=== PATIENT | female | born 1985 | race Caucasian/White ===

== ENCOUNTER → 2023-03-29 15:41 | Outpatient (BNVA) | payer OTHER, SELFPAY | PROVIDERS: Visit Provider Surgery | DX: K43.9 Ventral hernia without obstruction or gangrene (principal) | CPT/HCPCS: 99202 ==

== ENCOUNTER 2023-04-11 13:48 | Outpatient (REF) | payer OTHER, SELFPAY ==
--- NOTE | ~2023-04-11 | CT_ITS ---
EXAMINATION: CT ABDOMEN AND PELVIS WITHOUT CONTRAST CLINICAL INFORMATION: Ventral hernia COMPARISON: None available. TECHNIQUE: Multidetector volumetric imaging was performed from the superior aspect of the liver through the pubic symphysis. Sagittal and coronal reformatted images were obtained on the technologist's workstation. This CT examination was performed using dose optimization techniques as appropriate, variously including the following: *Automated exposure control *Adjustment of mA and/or kV according to patient size (this includes techniques or standardized protocols for targeted exams where dose is matched to indication/reason for exam; i.e. extremities or head) *Use of iterative reconstruction technique DLP: 7 1 mGy-cm FINDINGS: LUNG BASES: The visualized lung bases are unremarkable. LIVER, GALLBLADDER, AND BILIARY TREE: The liver is normal in size, shape, and attenuation. No focal hepatic lesion or biliary ductal dilatation is present. The gallbladder is unremarkable with no evidence of radiopaque gallstones, gallbladder wall thickening, or obvious pericholecystic inflammatory changes. PANCREAS: Unremarkable. SPLEEN: Unremarkable. ADRENAL GLANDS: Unremarkable. KIDNEYS AND URETERS: The kidneys are normal in size, shape, and attenuation. No hydronephrosis, hydroureter, or calculi seen. No perinephric stranding. BLADDER: Not optimally distended but appears unremarkable. GASTROINTESTINAL TRACT: The small and large bowel are unremarkable. The appendix is unremarkable. ABDOMINAL WALL: Diastasis of the rectus muscles. Left supraumbilical hernia containing fat and small amount of fluid. Small umbilical hernia containing fat. Probable low midline scar. LYMPH NODES: Normal. VASCULAR: Unremarkable. PELVIC VISCERA: Unremarkable. OSSEOUS STRUCTURES: Curvature of the lower lumbar spine to the left. CT/CT abdomen pelvis wo IV con IMPRESSION: Umbilical and periumbilical hernias containing fat and small amount of fluid. Diastasis of the rectus muscles. Fleischner guidelines were followed.
== END 2023-04-11 13:49 | disposition home or self-care (01) ==
LOC: HO.CT 13:48
PROVIDERS: Visit Provider Surgery
DX: K43.9 Ventral hernia without obstruction or gangrene (principal)
CPT/HCPCS: 74176

== ENCOUNTER 2023-04-13 08:55 | Day surgery (SDC) | payer OTHER, SELFPAY ==
[2023-04-11 11:48] VITALS: BMI 43.4
--- NOTE | 2023-04-12 13:20 | P.CONAN_ITS ---
Documented by User: Laureen Johnston NP 04/12/23 13:27 HPI - Anesthesia Eval Consult details Narrative: 37yo F for supraumbilical hernia, poss mesh Suboxone daily - Took 16mg 04/12/23. Will hold until DOS. PMFSH Active Problems Active Problems: All Active Problems (Updated 04/11/23 @ 11:39 by Safia Turner, RN) Buprenorphine dependence (Acute) Morbid exogenous obesity (Acute) Supraumbilical hernia (Acute) Past Medical History Medical History (Updated 04/11/23 @ 11:39 by Safia Turner, RN) Buprenorphine dependence History of opioid abuse Hx MRSA infection Hx of bronchitis Morbid exogenous obesity Seasonal depression Supraumbilical hernia Family History Family History (Updated 03/29/23 @ 15:59 by TAJ Koo) Maternal Aunt Cervical cancer Surgical History Surgical History (Updated 04/11/23 @ 11:39 by Safia Turner RN) History of 3 sections History of incisional hernia repair History of tonsillectomy History of tubal ligation Social History Social History (Updated 03/29/23 @ 15:59 by TAJ Koo) Alcohol intake: never Patient Tobacco Use Status: Current everyday Tobacco user Tobacco use type: Cigarette Cigarette Packs Per Day: 0.5 Cigarettes Per Day: 10.0 Use of substances other than those prescribed or required for medical reasons: No Are you DNR?: No Advance Directives: No Advance Directives Information Provided: Yes Meds Allergies Allergy/AdvReac Type Severity Reaction Status Date / Time naloxone [NALOXONE] Allergy Severe Anaphylaxis Verified 04/13/23 09:13 nyloxone Allergy Unknown throat Verified 04/13/23 09:13 paralysis, anaphylaxis shellfish derived AdvReac Intermediate Vomiting Verified 03/29/23 15:57 ([place] legs) Home Medications Medication Instructions Recorded Confirmed Last Taken Type buprenorphine HCl 8 mg sublingual 24 mg sublingual TID 03/29/23 04/13/23 04/12/23 History tablet dextroamphetamine-amphetamine ER 2 cap PO DAILY 03/29/23 04/11/23 04/13/23 History 20 mg 24hr capsule,extend release (Adderall XR) lamotrigine 200 mg tablet 200 mg PO DAILY 03/29/23 04/11/23 04/13/23 History albuterol sulfate 90 mcg/actuation 2 puff inhalation Q4H PRN dyspnea 04/11/23 04/11/23 Unknown History aerosol inhaler (Ventolin HFA) Exam Exam Date and Time: April 12, 2023 1320 Height,Weight and Vital Signs: Height 5 ft 3 in Weight 111.13 kg Documented by User: Nicole Piper MD 04/13/23 09:33 [facility] Past Medical History Medical History (Updated 04/11/23 @ 11:39 by Safia Turner, RN) Buprenorphine dependence History of opioid abuse Hx MRSA infection Hx of bronchitis Morbid exogenous obesity Seasonal depression Supraumbilical hernia Family History Family History (Updated 03/29/23 @ 15:59 by TAJ Koo) Maternal Aunt Cervical cancer Family history of problems with anesthesia: No Surgical History Surgical History (Updated 04/11/23 @ 11:39 by Safia Turner RN) History of 3 sections History of incisional hernia repair History of tonsillectomy History of tubal ligation History of Problems with Anesthesia: No Social History Social History (Updated 03/29/23 @ 15:59 by TAJ Koo) Alcohol intake: never Patient Tobacco Use Status: Current everyday Tobacco user Tobacco use type: Cigarette Cigarette Packs Per Day: 0.5 Cigarettes Per Day: 10.0 Use of substances other than those prescribed or required for medical reasons: No Are you DNR?: No Advance Directives: No Advance Directives Information Provided: Yes Meds Allergies Allergy/AdvReac Type Severity Reaction Status Date / Time naloxone [NALOXONE] Allergy Severe Anaphylaxis Verified 04/13/23 09:13 nyloxone Allergy Unknown throat Verified 04/13/23 09:13 paralysis, anaphylaxis shellfish derived AdvReac Intermediate Vomiting Verified 03/29/23 15:57 ([place] legs) Home Medications Medication Instructions Recorded Confirmed Last Taken Type buprenorphine HCl 8 mg sublingual 24 mg sublingual TID 03/29/23 04/13/23 04/12/23 History tablet dextroamphetamine-amphetamine ER 2 cap PO DAILY 03/29/23 04/11/23 04/13/23 History 20 mg 24hr capsule,extend release (Adderall XR) lamotrigine 200 mg tablet 200 mg PO DAILY 03/29/23 04/11/23 04/13/23 History albuterol sulfate 90 mcg/actuation 2 puff inhalation Q4H PRN dyspnea 04/11/23 04/11/23 Unknown History aerosol inhaler (Ventolin HFA) Exam Airway Mallampati Class: II (broken teeth, denies anything loose) TM Dist: >3cm Neck ROM: Full Heart: rrr Lungs: slight wheeze left Assessment and Plan Assessment Anesthesia Assessment: Anesthesia Plan Discussed and Chart Reviewed Final Anesthetic Review Family History of Problems with Anesthesia: No History of Problems with Anesthesia: No NPO: Yes ASA Class: II Final Preanesthetic Review: No Changes in Pt Med Stat, Meds/Allgs Chart Reviewed and Consent Obtained/Reviewed Patient Risk: Intermediate Procedure Risk: Intermediate Anesthetic Plan Anesthetic Plan: GA Disposition: Standard PACU
[2023-04-13] VITALS (8 sets, daily range): BP systolic 126–140; BP diastolic 62–97; PULSE 81–117; RESP 16–28; TEMP 36.3–36.6; O2SAT 94–97
[2023-04-13] MEDS: Albuterol Sulfate (0.083%) 2.5 MG/3 ML VIAL.NEB INHALE (09:48)
--- NOTE | 2023-04-13 10:07 | MHC.SHP ---
Pre-Procedural Eval Section A Date of Service: 04/13/23 The patient is an INPATIENT: No Changes since office visit: No Cold of Flu in the past 2 weeks, No New Medical Problems, No Changes in Medication and No Patient answered all questions The History & Physical has been completed within 30 days and I have reviewed it.: Yes Section B Chief Complaint: Ventral hernia without obstruction or gangrene Allergies: Allergies Allergy/AdvReac Type Severity Reaction Status Date / Time naloxone [NALOXONE] Allergy Severe Anaphylaxis Verified 04/13/23 09:13 nyloxone Allergy Unknown throat Verified 04/13/23 09:13 paralysis, anaphylaxis shellfish derived AdvReac Intermediate Vomiting Verified 03/29/23 15:57 ([place] legs) Plan I have reviewed the history and physical and performed a pertinent physical examination on my patient. No changes have occurred unless specified. Time Spent With Patient Time: Total time managing care of this patient today ____ minutes.
--- NOTE | 2023-04-13 11:21 | W.PM.OPN ---
Operative Note Operative Note Date of Service: 04/13/23 Narrative: Preop diagnosis: Supraumbilical hernia Postop diagnosis: Supraumbilical hernia, with chronically incarcerated omental fat Procedure: Repair of supraumbilical hernia using Ventralex mesh, with reduction of of incarcerated omental fat, Surgeon: Lan Mack MD The patient is a 37-year-old female with an on reducible supraumbilical hernia. She had a CAT scan showing this fat containing supraumbilical hernia, large amounts of fat that was chronically incarcerated, defect in the fascia measuring about 2 cm. She understood the technique of repair with mesh. She was aware of the risks, benefits, and alternatives She was brought to the operating room. She was placed supine under general anesthesia via laryngeal mask airway. The abdomen is prepped and draped in the usual sterile fashion. A surgical time-out was done. The patient received cefazolin 2 g IV preoperatively. I infiltrated my planned line of incision with lidocaine 1%. I made the incision on the midline overlying this hernia using blade 15. This was carried down through the full-thickness of the skin subcutaneous fat. It is noted the patient was morbidly obese and the very thick layer of subcutaneous fat so we had to extend the incision on the skin to achieve good visualization. Eventually, I was able to visualize the hernia sac. We had to use large residual retractors to achieve good exposure of the sac. I dissected the sac sharply with Metzenbaum scissors and electrocautery from the surrounding subcutaneous layer. Eventually, I was able to expose the sac down to the fascial defect. I continued to gently dissect the sac using Metzenbaum scissors off of the fascial edge. These freed up the entire hernia. I excise the sac from the fascial defect and this from the hernia contents. This was sent as a specimen. There was note of a large amount of omental fat. By gentle serial pressure, I was able to reduce this to the fascial defect. The fascial defect was just about 2 cm in diameter. There were no adhesions on the underside of the defect. I used a small-sized Ventralex mesh and this was position under the defect. This was secured to the fascia using the Prolene straps on both sides using Prolene 2 sutures. I closed the fascia with a Maxon 1 [id number] stitch I copiously irrigated the thick subcutaneous fat. I reapposed the subcutaneous layer with Polysorb 3-0 interrupted sutures. Because of the thick amount of subcutaneous fat, I decided to close the skin with interrupted sutures using nylon 3-0 instead of the subcuticular running sutures to allow some drainage from the thick subcutaneous fat. The incision was then infiltrated generously with Marcaine 0.5% for postop analgesia. Dressings were applied. The procedure was completed. The patient tolerated procedure well. There were no immediate complications. Initial and final counts of sponges and instruments were correct. Estimated blood loss was about 20 cc. The patient was extubated without difficulty and transferred to the recovery room with stable vital signs.
--- NOTE | 2023-04-13 12:06 | P.HPSUR_ITS ---
Pre-Procedural Eval Section A Date of Service: 04/13/23 The patient is an INPATIENT: Yes Section B Chief Complaint: Ventral hernia without obstruction or gangrene Allergies: Allergies Allergy/AdvReac Type Severity Reaction Status Date / Time naloxone [NALOXONE] Allergy Severe Anaphylaxis Verified 04/13/23 09:13 nyloxone Allergy Unknown throat Verified 04/13/23 09:13 paralysis, anaphylaxis shellfish derived AdvReac Intermediate Vomiting Verified 03/29/23 15:57 ([facility] [place] legs) Plan Diagnosis/Plan: Unchanged I have reviewed the history and physical and performed a pertinent physical examination on my patient. No changes have occurred unless specified. Time Spent With Patient Time: Total time managing care of this patient today ____ minutes.
[2023-04-13] MEDS: Acetaminophen 325 MG TABLET 650 MG PO (12:14)
[2023-04-13] MEDS: oxyCODONE HCl Immed Release 5 MG TABLET 10 MG PO (12:15)
== END 2023-04-13 12:50 | disposition home or self-care (01) ==
PROVIDERS: Visit Provider Surgery
PROC: (CPT 49592; principal; 2023-04-13 10:50)
DX: K43.6 Other and unspecified ventral hernia with obstruction, without gangrene (principal); F11.20 Opioid dependence, uncomplicated; Z87.09 Personal history of other diseases of the respiratory system; Z86.14 Personal history of Methicillin resistant Staphylococcus aureus infection; E66.01 Morbid (severe) obesity due to excess calories; Z68.41 Body mass index [BMI] 40.0-44.9, adult; Z79.899 Other long term (current) drug therapy; Z88.8 Allergy status to other drugs, medicaments and biological substances; F17.210 Nicotine dependence, cigarettes, uncomplicated
CPT/HCPCS: 49592; 88302; 94640; C1781; J0690; J1885; J2405; J3010

== ENCOUNTER 2023-04-16 15:46 | Inpatient (IN) | payer OTHER, SELFPAY ==
--- NOTE | ~2023-04-16 | XR_ITS ---
EXAMINATION: XR CHEST CLINICAL INFORMATION: Shortness of breath. COMPARISON: None available. TECHNIQUE: Frontal view of the chest was obtained. FINDINGS: The heart size is least top normal. There is pulmonary vascular congestion, without overt pulmonary edema. Lung volumes are somewhat diminished, with crowding of bronchovascular and pulmonary parenchymal markings. No infiltrate, effusion or pneumothorax is seen. There is no acute osseous abnormality. XR/XR chest 1V IMPRESSION: 1. There is at least top normal cardiac size. There is pulmonary vascular congestion, without overt pulmonary edema. 2. Lung volumes are diminished. 3. No focal infiltrate or effusion is noted.
[2023-04-16 16:00] VITALS: BP 144/102; PULSE 116; RESP 18; TEMP 37; O2SAT 95; BMI 46.6
[2023-04-16 16:03] VITALS: BP 144/102; PULSE 116; RESP 18; TEMP 37; O2SAT 95
--- NOTE | 2023-04-16 16:06 | PC.NURSE ---
Alert and oriented. Transfer [facility]. Had hernia repair surgery sunday with dr. pendleton and started with abdominal pressure on sat. Went to [facility] sunday night into sunday around 1am. [place] states abdominal wall abcess was found on ct scan. Iv fluids running from [facility], [facility] stating they gave 4mg zofran odt in route. Patient states 9/10 abdominal pain at this time with nausea. Denies sob or any other pain.
--- NOTE | 2023-04-16 16:12 | PC.NURSE ---
Patient anxious stating she is having difficulty breathing, placed on [address] Mack in to see patient, plan is to be admittted.
--- NOTE | 2023-04-16 16:22 | ED_ITS ---
HPI - Abdominal Pain General Chief Complaint: Abdominal Pain Stated Complaint: abcess Time Seen by Provider: 04/16/23 16:08 History of Present Illness HPI narrative: Patient is a 37-year-old female had cholecystectomy done 2 days prior. Was seen at [facility]. Had labs done had CTA of the chest and also CT abdomen pelvis done at [facility]. CTA of the chest was negative for any acute evidence of pulmonary emboli there is mild opacity noted in the lingula area that may represent an atelectasis infiltrate or scarring. Patient's CT of the abdomen showed a 4.9 x 2.5 cm rim enhancing gas containing fluid collection in the supraumbilical area. Patient was transferred to [facility] for further evaluation as the surgery was done by Dr. Mack. In ultrasound of the right upper quadrant was also done at [facility]. It did not show any acute evidence of cholecystitis. Related Data Home Medications Medication Instructions Recorded Confirmed buprenorphine HCl 8 mg sublingual 24 mg sublingual TID 03/29/23 04/13/23 tablet dextroamphetamine-amphetamine ER 2 cap PO DAILY 03/29/23 04/11/23 20 mg 24hr capsule,extend release (Adderall XR) lamotrigine 200 mg tablet 200 mg PO DAILY 03/29/23 04/11/23 albuterol sulfate 90 mcg/actuation 2 puff inhalation Q4H PRN dyspnea 04/11/23 04/11/23 aerosol inhaler (Ventolin HFA) Previous Rx's Medication Instructions Recorded ibuprofen 600 mg tablet 600 mg PO Q6H PRN pain #30 tabs 04/13/23 oxycodone-acetaminophen 5 mg-325 1 tab PO Q4-6H PRN pain #30 tabs 04/13/23 mg tablet (Percocet) Allergies Allergy/AdvReac Type Severity Reaction Status Date / Time naloxone [NALOXONE] Allergy Severe Anaphylaxis Verified 04/13/23 09:13 nyloxone Allergy Unknown throat Verified 04/13/23 09:13 paralysis, anaphylaxis shellfish derived AdvReac Intermediate Vomiting Verified 03/29/23 15:57 ([place] legs) Review of Systems Review of Systems No fever no chills. Positive generalized PMFSH Past Medical History Medical History (Updated 04/16/23 @ 16:34 by Lan Mack MD) Buprenorphine dependence History of opioid abuse Hx MRSA infection Hx of bronchitis Morbid exogenous obesity Seasonal depression Shortness of breath Supraumbilical hernia Surgical History (Updated 04/16/23 @ 16:34 by Lan Mack MD) History of 3 sections History of incisional hernia repair History of tonsillectomy History of tubal ligation Status post repair of ventral hernia Family History Family History (Updated 03/29/23 @ 15:59 by TAJ Koo) Maternal Aunt Cervical cancer Social History Social History (Updated 03/29/23 @ 15:59 by TAJ Koo) Alcohol intake: former Patient Tobacco Use Status: Current everyday Tobacco user Tobacco use type: Cigarette Cigarette Packs Per Day: 0.5 Cigarettes Per Day: 10.0 Smoked in Last 30 Days: Yes Use of substances other than those prescribed or required for medical reasons: No Advance Directives: No Advance Directives Information Provided: No Physical Exam ED Vital Signs: Vital Signs - 24 hr 04/16/23 16:00 04/16/23 16:03 Temperature 98.6 F 98.6 F Pulse Rate 116 H 116 H Respiratory Rate 18 18 Blood Pressure 144/102 H 144/102 H Pulse Oximetry 95 95 Oxygen Delivery Method Room Air Room Air BMI result Body Mass Index 46.6 Medical Decision Making Medical Decision Making [facility] Narrative: Patient had cholecystectomy done at [facility] on Sunday. Presented today with shortness of breath generalized malaise abdominal pain. CTA of the chest done at [facility] showed no evidence of pulmonary emboli. It did show a possible lingular infiltrate, question ground-glass opacity noted in the bilat eral lungs. A BMP was ordered. In addition COVID test was ordered. Cultures obtained. Will start patient on a dose of cefepime. CT scan of the abdomen pelvis showed a question fluid collections/possible abscess. Patient's wound appears clean intact. She is well-appearing. Dr. Olivares is is down to evaluate patient. Will admit patient to his service. Will monitor carefully. Patient's labs were repeated. Early labs were done at [facility] it shows a white count of 12.7 patient's urine was grossly noninfected patient's LFTs were normal creatinine was normal. Differential Diagnosis Differential Diagnoses: The differential diagnosis associated with the presentation includes Pneumonia, COVID Consult Healthcare Provider Management of the patient was discussed with: Hospitalist and Rural Health Consultant Surgery Lab Data [facility] Lab Attestation statement: I reviewed the patient's lab results. Radiology Impression Discussion of test interpretation with radiology: I have reviewed the radiologist's reading. External Record Review External record reviewed: Outside ED record From [facility] Chronic Conditions Patient?s care impacted by: Hypertension Discharge Plan Discharge Prescriptions: No Action albuterol sulfate [Ventolin HFA] 90 mcg/actuation HFA aerosol inhaler 2 puff inhalation Q4H PRN (Reason: dyspnea) oxycodone-acetaminophen [Percocet] 5-325 mg tablet 1 tab PO Q4-6H PRN (Reason: pain) Qty: 30 0RF Rx Instructions: Partial Fill upon patient request. ibuprofen 600 mg tablet 600 mg PO Q6H PRN (Reason: pain) Qty: 30 0RF lamotrigine 200 mg tablet 200 mg PO DAILY buprenorphine HCl 8 mg tablet, sublingual 24 mg sublingual TID Rx Instructions: took 16mg last night dextroamphetamine-amphetamine [Adderall XR] 20 mg capsule,extended release 24hr 2 cap PO DAILY
[2023-04-16 16:24] VITALS: BP 136/103; PULSE 114; RESP 18; TEMP 37.1; O2SAT 97
--- NOTE | 2023-04-16 16:29 | PM.HPGS ---
History of Present Illness History of Present Illness Date of Service: 04/23/23 Chief complaint: shortness of breath, status post repair of hernia Narrative: Yvonne Anderson is a 37 year old female with morbid obesity, who went to the ER in [facility] after midnight last night because of shortness of breath. She had undergone repair of a supraumbilical hernia with mesh 3 days ago last April 13, 2023. She tolerated procedure well. She says she actually had been doing well at home. She did not have any significant pain. However, she says that yesterday afternoon, she seemed to get short of breath. This had persisted so she went to the ER in [place] last night. She had a CAT scan which did not reveal any obvious pathology. There was note of fluid in air underneath her incision in the thick subcutaneous fat in it was mention that this may be an abscess. However, she is just 3 days postop and she does not complain of any redness, or pain on the incision at this time. She had describes some right upper quadrant/right lower chest in [place] so an ultrasound was done as well which did not reveal any cholecystitis. She was transferred to [facility] by [facility]. She does state that she currently feels that her breathing is much improved. Review of Systems Constitutional: Constitutional: Denies chills and Denies fever(s) Cardiovascular: Cardiovascular: Denies chest pain at rest, Reports dyspnea and Reports dyspnea on exertion Respiratory: Respiratory: Reports dyspnea and Reports dyspnea on exertion Gastrointestinal: Gastrointestinal: Denies nausea and Denies vomiting Genitourinary: Genitourinary: Denies difficulty voiding PMFSH Past Medical History Medical History (Updated 04/19/23 @ 00:03 by Ashley Lynch) Buprenorphine dependence History of opioid abuse Hx MRSA infection Hx of bronchitis Morbid exogenous obesity Seasonal depression Shortness of breath Supraumbilical hernia Family History Family History (Updated 03/29/23 @ 15:59 by TAJ Koo) Maternal Aunt Cervical cancer Surgical History Surgical History (Updated 04/16/23 @ 16:34 by Lan Mack MD) History of 3 sections History of incisional hernia repair History of tonsillectomy History of tubal ligation Status post repair of ventral hernia Social History Social History (Updated 03/29/23 @ 15:59 by TAJ Koo) Household Members: Family Housing: House Do you presently have visiting nurse or other home services: No Alcohol intake: former Patient Tobacco Use Status: Current everyday Tobacco user Tobacco use type: Cigarette Cigarette Packs Per Day: 1 Cigarettes Per Day: 20.0 Second Hand Smoke Exposure: No service: No Current occupational status: unemployed Meds Allergies Allergy/AdvReac Type Severity Reaction Status Date / Time naloxone [NALOXONE] Allergy Severe Anaphylaxis Verified 04/13/23 09:13 nyloxone Allergy Unknown throat Verified 04/13/23 09:13 paralysis, anaphylaxis shellfish derived AdvReac Intermediate Vomiting Verified 03/29/23 15:57 ([place] legs) Active Medications: Current Medications Heparin Sodium (Porcine) (Heparin Sodium,Porcine 5,000 Unit/Ml Vial) 5,000 unit SUBCUT Q8H [facility] Sodium Chloride (Ns) 1,000 mls @ 999 mls/hr IV .Q1H1M [facility] Stop: 04/16/23 17:30 Lactated Ringer's (Lr) 1,000 mls @ 80 mls/hr IVCONT .[id number] [facility] Sodium Chloride (0.9 % Sodium Chloride Flush 3 Ml Syringe) 3 ml IVFLUSH QSHIFT [facility] Home Medications Medication Instructions Recorded Confirmed Last Taken Type dextroamphetamine-amphetamine ER 2 cap PO DAILY 03/29/23 04/16/23 04/15/23 History 20 mg 24hr capsule,extend release (Adderall XR) lamotrigine 200 mg tablet 200 mg PO DAILY 03/29/23 04/16/23 04/15/23 History albuterol sulfate 90 mcg/actuation 2 puff inhalation Q4H PRN dyspnea 04/11/23 04/16/23 Unknown History aerosol inhaler (Ventolin HFA) buprenorphine HCl 8 mg sublingual 8 mg sublingual TID 04/16/23 04/16/23 04/15/23 History tablet Physical Exam Vital Signs: Vital Signs: Last Vital Signs Temp 98.6 F 04/16/23 16:03 Pulse 116 H 04/16/23 16:03 Resp 18 04/16/23 16:03 BP 144/102 H 04/16/23 16:03 Pulse Ox 95 04/16/23 16:03 O2 Del Method Room Air 04/16/23 16:03 BMI result Body Mass Index 46.6 Const: Other: Appears morbidly obese General: comfortable and no acute distress Resp: Other: Mildly short of breath Cardio: Rate: tachycardic GI: Other: Soft, nondistended, no guarding, no rebound, mild tenderness on the right upper quadrant, no Trujillo's sign, no redness or induration on the supraumbilical hernia repair site, no significant tenderness on this area Assessment and Plan (1) Shortness of breath: Status: Resolved She was sent to the ER by [facility] because of concerns of on infection on the hernia repair site. Current exam does not reveal any redness, warmth, or discharge. The incision actually looks to be healing well. The sutures are intact. She does not have any significant tenderness on the area. The findings on the CT scan that show air and fluid in the subcutaneous area of the her site is not unexpected, in view of her recent surgery thick amounts of subcutaneous fat. The area does not appear infected at all at this time. I am not inclined to open this up for now especially in the presence of a mesh underneath. I will monitor this closely. She says her main complaint when she went to the ER last and was that she was short of breath. She had a CAT scan including a CT angiogram in [place] which did not reveal any PE or any acute pulmonary issues at this time. She does state that her shortness of breath is much better now. However, she seems to be still tachycardic. I am uncertain as to the etiology of her shortness of breath and tachycardia. It does not appear to be infectious. I will consult the hospitalist service. She describes some pain on the right upper quadrant and right chest areas. Her ultrasound does not suggest cholecystitis at this time. She will be admitted for close monitoring and pain management. (2) Status post repair of ventral hernia: Status: Acute The incision does not appear infected. There is no warmth, redness, or significant tenderness or induration. The CAT scan findings of fluid collection and air may be seen in an immediate postop period from her supraumbilical hernia repair. I have discussed the above plan with the ED staff. Time Spent With Patient Time: Total time managing care of this patient today ____ minutes. Quality Stroke Does the patient have a stroke diagnosis?: No VTE Prior VTE?: No VTE Risk Level:: Medical - low VTE Device Contraindication: N/A - Device Ordered VTE Drug Contraindication: N/A - Med Ordered Procedures Date of Service Date of Service: 04/23/23
--- NOTE | 2023-04-16 16:45 | HO.PM.IMCN ---
History of Present Illness Data of Consult Service Date: 04/16/23 Requesting physician: Kamaljit Navarro Primary Care Provider: Unknown Physician HPI 37-year-old woman is status post cholecystectomy presented to [facility] with abdominal pain and subsequently transferred to [facility] to be admitted by operating surgeon. She was noted to be tachycardic with no fever. She was given cefepime in the ER and started on IV fluids.. At this point she is hemodynamically stable. Review of Systems Review of Systems: Denies any recent fever chills or decrease in appetite respiratory denies any shortness of breath coverage production cardiovascular denies chest pain gastrointestinal reported abdominal pain, denied nausea, vomiting, diarrhea genitourinary denies any dysuria frequency or hematuria musculoskeletal denies any joint pain or swelling neuropsych denies any weakness or seizures all other systems reviewed are negative [facility] Medical History Buprenorphine dependence History of opioid abuse Hx MRSA infection Hx of bronchitis Morbid exogenous obesity Seasonal depression Shortness of breath Supraumbilical hernia Family History Maternal Aunt Cervical cancer Surgical History History of 3 sections History of hernia repair (~04/13/23) History of incisional hernia repair History of tonsillectomy History of tubal ligation Status post repair of ventral hernia Social History Household Members: Family Housing: House Do you presently have visiting nurse or other home services: No Alcohol intake: former Patient Tobacco Use Status: Current everyday Tobacco user Tobacco use type: Cigarette Cigarette Packs Per Day: 1 Cigarettes Per Day: 20.0 Second Hand Smoke Exposure: No service: No Current occupational status: unemployed Meds Allergies Allergy/AdvReac Type Severity Reaction Status Date / Time naloxone [NALOXONE] Allergy Severe Anaphylaxis Verified 04/26/23 10:24 nyloxone Allergy Unknown throat Verified 04/26/23 10:24 paralysis, anaphylaxis shellfish derived AdvReac Intermediate Vomiting Verified 04/26/23 10:24 ([place] legs) Active Medications: Current Medications Heparin Sodium (Porcine) (Heparin Sodium,Porcine 5,000 Unit/Ml Vial) 5,000 unit SUBCUT Q8H [facility] Sodium Chloride (Ns) 1,000 mls @ 999 mls/hr IV .Q1H1M [facility] Stop: 04/16/23 17:30 Lactated Ringer's (Lr) 1,000 mls @ 80 mls/hr IVCONT .[id number] [facility] Cefepime HCl 1 gm/ Sodium (Chloride) 50 mls @ 100 mls/hr IV ONCE ONE Stop: 04/16/23 16:58 Morphine Sulfate (Morphine Sulfate 4 Mg/Ml Cartridge) 3 mg IVPUSH Q3H PRN; Protocol PRN Reason: Pain, Severe (Pain Scale 7-10) Oxycodone HCl (Oxycodone Hcl Immed Release 5 Mg Tablet) 5 mg PO Q6H PRN PRN Reason: Pain, Moderate(Pain Scale 4-6) Sodium Chloride (0.9 % Sodium Chloride Flush 3 Ml Syringe) 3 ml IVFLUSH QSHIFT [facility] Home Medications Medication Instructions Recorded Confirmed Last Taken Type dextroamphetamine-amphetamine ER 2 cap PO DAILY 03/29/23 04/26/23 04/15/23 History 20 mg 24hr capsule,extend release (Adderall XR) lamotrigine 200 mg tablet 200 mg PO DAILY 03/29/23 04/26/23 04/15/23 History albuterol sulfate 90 mcg/actuation 2 puff inhalation Q4H PRN dyspnea 04/11/23 04/26/23 Unknown History aerosol inhaler (Ventolin HFA) buprenorphine HCl 8 mg sublingual 8 mg sublingual TID 04/16/23 04/26/23 04/15/23 History tablet Physical Exam Vital Signs and Narrative: Vital Signs: Last Vital Signs Temp 98.6 F 04/16/23 16:03 Pulse 116 H 04/16/23 16:03 Resp 18 04/16/23 16:03 BP 144/102 H 04/16/23 16:03 Pulse Ox 95 04/16/23 16:03 O2 Del Method Room Air 04/16/23 16:03 BMI result Body Mass Index 46.6 Appearing in no acute distress head is normocephalic atraumatic eyes pupils are PERRLA sclera is anicteric mouth throat mucous membranes are intact and moist neck is supple no lymphadenopathy, no JVD noted lung sounds are clear to auscultation heart regular rate rhythm, clear S1, S2 positive bowel sounds, abdomen is soft, tender, obese neuro patient is alert x3, no focal deficits Results Labs 04/17/23 08:24 04/17/23 08:24 Assessment and Plan (1) Shortness of breath: Status: Resolved Plan 37 year old women admitted by general surgery and is s/p cholecystectomy on 04/13/2023. Returns back with severe pain and possible abscess Shortness of breath ? PNA cxr pending Abscess Status post cholecystectomy Management as per surgical team Pain management Substance abuse Continue Suboxone Mental health Continue home medications Morbid obesity. BMI 46.6 Discussed importance of weight management as this may be contributing to worsening of other comorbidities DVT prophylaxis as per admitting team Full code Time Spent With Patient Time: Total time managing care of this patient today ____ minutes.
[2023-04-16] MEDS: 0.9 % Sodium Chloride 1,000 ML 999 ML IV (17:03)
--- NOTE | 2023-04-16 17:03 | PHA.MEDREC ---
Pharmacy Consult ? Medication Reconciliation Pharmacy has completed the medication reconciliation. Spoke to patient to confirm meds. Patient states that they take Flovent inhaler with a yellow cap , however called their pharmacy and pharmacy claims to have no record of one within last 2 years. Patient does not know dosage and pharmacy does not have prescription for medication, so unable to confirm on med list.
[2023-04-16] MEDS: cefEPime HCl 1 GM in 0.9 % Sodium Chloride 50 ML IV (17:55)
[2023-04-16 17:59] LABS: MANUAL DIFF FLAG NO
--- NOTE | 2023-04-16 17:59 | PC.NURSE ---
Alert and oriented. VSS. Labs drawn per order. IV fluids running per order. Abdominal sutures intact with no drainage or s/s of infection.
[2023-04-16 18:02] LABS: Basophils Absolute Auto 0.1 X10*3/uL (0.0-0.2); Basophils Percent Auto 0.5 % (0-2); Eosinophils Absolute Auto 0.1 X10*3/uL (0.0-0.4); Hematocrit 32.4 % (37.0-47.0); Hemoglobin 9.6 g/dl (12.0-16.0); Imm Gran Abs Auto 0.05 X10*3/uL (0.00-0.03); Imm Gran Pct Auto 0.4 % (0.0-0.4); Lymphocytes Absolute Auto 1.9 X10*3/uL (1.2-4.9); Lymphocytes Percent Auto 15.5 % (20-40); Mean Corpuscular HGB Conc 29.6 g/dl (31.0-35.0); Mean Corpuscular Hemoglobin 20.6 pg (27.0-33.0); Mean Corpuscular Volume 69.7 fL (80.0-98.0); Mean Platelet Volume 9.7 fL (9.4-12.3); Monocytes Absolute Auto 0.7 X10*3/uL (0.1-1.2); Monocytes Percent Auto 5.4 % (2-11); Neutrophils Absolute Auto 9.4 x10*3/uL (2.0-8.3); Neutrophils Percent Auto 77.2 % (45-73); Platelet Count 376 X10*3/uL (160-400); Red Blood Count 4.65 X10*6/uL (4.20-5.50); White Blood Count 12.2 X10*3/uL (4.8-10.8)
[2023-04-16 18:23] LABS: Lactic Acid 1.5 mmol/L (0.5-2.0)
[2023-04-16 18:27] LABS: Alanine Aminotransferase 11 U/L (0-31); Albumin Level 3.8 g/dL (3.5-5.0); Alkaline Phosphatase 99 U/L (39-117); Anion Gap 13 (12-20); Aspartate Amino Transferase 11 U/L (5-31); Bilirubin Direct 0.4 mg/dL (0.0-0.5); Bilirubin Total 1.4 mg/dL (0.0-1.0); Blood Urea Nitrogen 8 mg/dL (9-16); Calcium 8.7 mg/dL (8.4-10.2); Carbon Dioxide 24 mmol/L (22-29); Chloride 108 mmol/L (96-108); Creatinine Clr Calc Pharmacy 140.8; Estimated Glomerular Filt Rate > 60; Glucose Random 99 mg/dL (60-115); Potassium 4.8 mmol/L (3.3-5.1); Sodium 140 mmol/L (135-145); Total Protein 6.4 g/dL (6.5-8.0)
[2023-04-16 18:31] LABS: B Type Natriuretic Peptide 615 pg/mL (<100)
[2023-04-16 18:47] LABS: Influenza A PCR NEGATIVE (Negative); Influenza B PCR NEGATIVE (Negative); Resp Syncy Virus RNA Qual PCR NEGATIVE (Negative); SARS COV2 PCR INHOUSE NEGATIVE (Negative)
--- NOTE | 2023-04-16 18:47 | PC.NURSE ---
report called to accepting floor
[2023-04-16 18:57] VITALS: BP 157/97; PULSE 117; RESP 18; TEMP 37.1; O2SAT 91
--- NOTE | 2023-04-16 19:10 | PC.NURSE ---
Pt has a field line in place; vivienne SOMMERS attempted to place IV, pt agitated and refusing new IV. Pt educated on [facility] protocol and the risk of keeping field IV in; pt verbally understood.
[2023-04-16] MEDS: Lactated Ringers 1,000 ML 80 ML IVCONT (19:11)
[2023-04-17 00:55] VITALS: BP 141/88; PULSE 100; RESP 18
[2023-04-17 04:00] VITALS: BP 164/95; PULSE 97; RESP 18; TEMP 36.4; O2SAT 93
[2023-04-17 07:11] VITALS: BP 140/70; PULSE 98; RESP 20; TEMP 36.2; O2SAT 95
--- NOTE | 2023-04-17 07:35 | P.PNGS_ITS ---
Subjective Subjective Date of Service: 04/18/23 Interval history: pt feels much better still SOB but mucj improved denies abdl pain hungry, wants to eat Physical Exam Vital Signs: Vital Signs: Last Vital Signs Temp 97.2 F 04/17/23 07:11 Pulse 98 04/17/23 07:11 Resp 20 04/17/23 07:11 BP 140/70 H 04/17/23 07:11 Pulse Ox 95 04/17/23 07:11 O2 Del Method Nasal Cannula 04/17/23 07:11 O2 Flow Rate 3 04/17/23 07:11 BMI result Body Mass Index 46.6 Const: Other: very mild SOB Resp: Other: mild SOB Cardio: Rate: regular rate GI: Palpation (GI): Soft to palpation, not firm, nontender and no guarding Objective Data Active Medications Heparin Sodium (Porcine) (Heparin Sodium,Porcine 5,000 Unit/Ml Vial) 5,000 unit SUBCUT Q8H [facility] Last Admin: 04/17/23 05:15 Dose: Not Given Documented By: MELINDA Non-Admin Reason: declined in adv, wants to talk to , seq st Lactated Ringer's (Lr) 1,000 mls @ 80 mls/hr IVCONT .[id number] [facility] Last Admin: 04/17/23 05:14 Dose: Not Given Documented By: MELINDA Non-Admin Reason: IV Running Morphine Sulfate (Morphine Sulfate 4 Mg/Ml Cartridge) 3 mg IVPUSH Q3H PRN; Protocol PRN Reason: Pain, Severe (Pain Scale 7-10) Oxycodone HCl (Oxycodone Hcl Immed Release 5 Mg Tablet) 5 mg PO Q6H PRN PRN Reason: Pain, Moderate(Pain Scale 4-6) Sodium Chloride (0.9 % Sodium Chloride Flush 3 Ml Syringe) 3 ml IVFLUSH QSHIFT [facility] Last Admin: 04/17/23 07:23 Dose: Not Given Documented By: TARA Non-Admin Reason: IV Running Labs 04/16/23 17:54 04/16/23 17:54 Labs: Laboratory Results - last 24 hr 04/16/23 04/16/23 04/16/23 17:54 17:54 17:54 MCV 69.7 L MCH 20.6 L MCHC 29.6 L RDW 19.0 H Plt Count 376 MPV 9.7 Immature Gran % (Auto) 0.4 Neut % (Auto) 77.2 H Lymph % (Auto) 15.5 L [place] % (Auto) 5.4 Eos % (Auto) 1.0 Baso % (Auto) 0.5 Lymph # (Auto) 1.9 [place] # (Auto) 0.7 Eos # (Auto) 0.1 Baso # (Auto) 0.1 Abs Immat Gran (auto) 0.05 H Absolute Neuts (auto) 9.4 H Absolute Nucleated RBC 0.000 Nucleated RBC % (auto) 0.0 Anion Gap 13 Estim Creat Clear Calc 140.8 Estimated GFR > 60 Random Glucose 99 Lactic Acid 1.5 Calcium 8.7 Total Bilirubin 1.4 H Direct Bilirubin 0.4 AST 11 ALT 11 Alkaline Phosphatase 99 B-Natriuretic Peptide Total Protein 6.4 L Albumin 3.8 Influenza Type A (PCR) Influenza Type B (PCR) RSV RNA Qual (PCR) SARS-CoV-2 RNA (RT-PCR) 04/16/23 04/16/23 17:54 17:54 MCV MCH MCHC RDW Plt Count MPV Immature Gran % (Auto) Neut % (Auto) Lymph % (Auto) [place] % (Auto) Eos % (Auto) Baso % (Auto) Lymph # (Auto) [place] # (Auto) Eos # (Auto) Baso # (Auto) Abs Immat Gran (auto) Absolute Neuts (auto) Absolute Nucleated RBC Nucleated RBC % (auto) Anion Gap Estim Creat Clear Calc Estimated GFR Random Glucose Lactic Acid Calcium Total Bilirubin Direct Bilirubin AST ALT Alkaline Phosphatase B-Natriuretic Peptide 615 H Total Protein Albumin Influenza Type A (PCR) NEGATIVE Influenza Type B (PCR) NEGATIVE RSV RNA Qual (PCR) NEGATIVE SARS-CoV-2 RNA (RT-PCR) NEGATIVE Procedures Date of Service Date of Service: 04/18/23 Progress Note: A&P Assessment and plan (1) Shortness of breath: Status: Acute Assessment and Plan: much improved denies abdl pain no redness, tenderness on incision changes seen on CT around incision are c/w postop status no I and D planned Time Spent With Patient Time: Total time managing care of this patient today ____ minutes. Quality Stroke Does the patient have a stroke diagnosis?: No VTE Prior VTE?: No VTE Risk Level:: Medical - low VTE Device Contraindication: N/A - Device Ordered VTE Drug Contraindication: N/A - Med Ordered
[2023-04-17] MEDS: Lactated Ringers 1,000 ML 80 ML IVCONT (07:47)
[2023-04-17] MEDS: Azithromycin 500 MG TABLET PO (07:55)
[2023-04-17 08:41] LABS: Hematocrit 32.2 % (37.0-47.0); Hemoglobin 9.5 g/dl (12.0-16.0); Mean Corpuscular HGB Conc 29.5 g/dl (31.0-35.0); Mean Corpuscular Hemoglobin 20.6 pg (27.0-33.0); Mean Corpuscular Volume 69.8 fL (80.0-98.0); Mean Platelet Volume 9.5 fL (9.4-12.3); Platelet Count 352 X10*3/uL (160-400); Red Blood Count 4.61 X10*6/uL (4.20-5.50); Red Cell Distribution Width 18.8 % (11.0-16.0); White Blood Count 11.8 X10*3/uL (4.8-10.8)
[2023-04-17 09:02] LABS: Anion Gap 13 (12-20); Blood Urea Nitrogen 9 mg/dL (9-16); Calcium 8.8 mg/dL (8.4-10.2); Carbon Dioxide 21 mmol/L (22-29); Chloride 107 mmol/L (96-108); Creatinine Clr Calc Pharmacy 157.3; Estimated Glomerular Filt Rate > 60; Glucose Random 106 mg/dL (60-115); Potassium 4.2 mmol/L (3.3-5.1); Sodium 137 mmol/L (135-145)
--- NOTE | 2023-04-17 09:25 | MHC.CM.PN ---
Pt admitted with shortness of breath, status post repair of hernia. Pt lives at home with her 3 children and their father, is independent/self-care. D/C plan to return home when medically cleared. Pt states being eager to return home as her children have special needs and she feels stressed by not being at home with them. Pts mother or children's father will transport home. PCP: none, local list of PCP's given to pt [facility]: x 2
--- NOTE | 2023-04-17 09:45 | HO.PM.IMPN ---
Subjective Subjective Date of Service: 04/17/23 Review of Systems Follow up abdominal pain sob today no nausea or vomiting Physical Exam Vital Signs: Vital Signs: Last Vital Signs Temp 97.2 F 04/17/23 07:11 Pulse 98 04/17/23 07:11 Resp 20 04/17/23 07:11 BP 140/70 H 04/17/23 07:11 Pulse Ox 95 04/17/23 07:11 O2 Del Method Nasal Cannula 04/17/23 07:11 O2 Flow Rate 3 04/17/23 07:11 BMI result Body Mass Index 46.6 Appearing in no acute distress lung sounds are clear to auscultation heart regular rate rhythm, clear S1, S2 positive bowel sounds, abdomen is soft, nontender neuro patient is alert x3, no focal deficits Objective Data Active Medications Azithromycin (Azithromycin 500 Mg Tablet) 500 mg PO Q24H [facility] Last Admin: 04/17/23 07:55 Dose: 500 mg Documented By: TARA Furosemide (Furosemide 20 Mg/2 Ml Vial) 20 mg IVPUSH ONCE ONE; Protocol Stop: 04/17/23 09:45 Heparin Sodium (Porcine) (Heparin Sodium,Porcine 5,000 Unit/Ml Vial) 5,000 unit SUBCUT Q8H [facility] Last Admin: 04/17/23 05:15 Dose: Not Given Documented By: MELINDA Non-Admin Reason: declined in adv, wants to talk to maninder pacheco Lactated Ringer's (Lr) 1,000 mls @ 80 mls/hr IVCONT .[id number] [facility] Last Admin: 04/17/23 07:47 Dose: 80 mls/hr Documented By: TARA Morphine Sulfate (Morphine Sulfate 4 Mg/Ml Cartridge) 3 mg IVPUSH Q3H PRN; Protocol PRN Reason: Pain, Severe (Pain Scale 7-10) Oxycodone HCl (Oxycodone Hcl Immed Release 5 Mg Tablet) 5 mg PO Q6H PRN PRN Reason: Pain, Moderate(Pain Scale 4-6) Sodium Chloride (0.9 % Sodium Chloride Flush 3 Ml Syringe) 3 ml IVFLUSH QSHIFT [facility] Last Admin: 04/17/23 07:23 Dose: Not Given Documented By: TARA Non-Admin Reason: IV Running Labs 04/17/23 08:24 04/17/23 08:24 Labs: Laboratory Results - last 24 hr 04/16/23 04/16/23 04/16/23 17:54 17:54 17:54 MCV 69.7 L MCH 20.6 L MCHC 29.6 L RDW 19.0 H Plt Count 376 MPV 9.7 Immature Gran % (Auto) 0.4 Neut % (Auto) 77.2 H Lymph % (Auto) 15.5 L [place] % (Auto) 5.4 Eos % (Auto) 1.0 Baso % (Auto) 0.5 Lymph # (Auto) 1.9 [place] # (Auto) 0.7 Eos # (Auto) 0.1 Baso # (Auto) 0.1 Abs Immat Gran (auto) 0.05 H Absolute Neuts (auto) 9.4 H Absolute Nucleated RBC 0.000 Nucleated RBC % (auto) 0.0 Anion Gap 13 Estim Creat Clear Calc 140.8 Estimated GFR > 60 Random Glucose 99 Lactic Acid 1.5 Calcium 8.7 Total Bilirubin 1.4 H Direct Bilirubin 0.4 AST 11 ALT 11 Alkaline Phosphatase 99 B-Natriuretic Peptide Total Protein 6.4 L Albumin 3.8 Influenza Type A (PCR) Influenza Type B (PCR) RSV RNA Qual (PCR) SARS-CoV-2 RNA (RT-PCR) 04/16/23 04/16/23 04/17/23 17:54 17:54 08:24 MCV 69.8 L MCH 20.6 L MCHC 29.5 L RDW 18.8 H Plt Count 352 MPV 9.5 Immature Gran % (Auto) Neut % (Auto) Lymph % (Auto) [place] % (Auto) Eos % (Auto) Baso % (Auto) Lymph # (Auto) [place] # (Auto) Eos # (Auto) Baso # (Auto) Abs Immat Gran (auto) Absolute Neuts (auto) Absolute Nucleated RBC 0.000 Nucleated RBC % (auto) 0.0 Anion Gap Estim Creat Clear Calc Estimated GFR Random Glucose Lactic Acid Calcium Total Bilirubin Direct Bilirubin AST ALT Alkaline Phosphatase B-Natriuretic Peptide 615 H Total Protein Albumin Influenza Type A (PCR) NEGATIVE Influenza Type B (PCR) NEGATIVE RSV RNA Qual (PCR) NEGATIVE SARS-CoV-2 RNA (RT-PCR) NEGATIVE 04/17/23 08:24 MCV MCH MCHC RDW Plt Count MPV Immature Gran % (Auto) Neut % (Auto) Lymph % (Auto) [place] % (Auto) Eos % (Auto) Baso % (Auto) Lymph # (Auto) [place] # (Auto) Eos # (Auto) Baso # (Auto) Abs Immat Gran (auto) Absolute Neuts (auto) Absolute Nucleated RBC Nucleated RBC % (auto) Anion Gap 13 Estim Creat Clear Calc 157.3 Estimated GFR > 60 Random Glucose 106 Lactic Acid Calcium 8.8 Total Bilirubin Direct Bilirubin AST ALT Alkaline Phosphatase B-Natriuretic Peptide Total Protein Albumin Influenza Type A (PCR) Influenza Type B (PCR) RSV RNA Qual (PCR) SARS-CoV-2 RNA (RT-PCR) Assessment and Plan (1) Shortness of breath: Status: Acute Plan 37 year old women admitted by general surgery and is s/p cholecystectomy on 04/13/2023.? Returns back with severe pain and possible abscess Pulmonary vascular congestion no consolidation or effusion on cxr but will cover for bronchitis as she does have a cough BNP 315, ? secondary to fluids during surgery xray showed some congestion so will give one dose IV lasix 20 mg now Abscess Status post cholecystectomy Management as per surgical team, no plan for intervention as symptoms have improved Pain management Substance abuse Continue Suboxone Mental health Continue home medications Morbid obesity. BMI 46.6 Discussed importance of weight management as this may be contributing to worsening of other comorbidities DVT prophylaxis as per admitting team Full code Time Spent With Patient Time: Total time managing care of this patient today ____ minutes. Quality Stroke Does the patient have a stroke diagnosis?: No VTE Prior VTE?: No VTE Risk Level:: Medical - low VTE Device Contraindication: N/A - Device Ordered VTE Drug Contraindication: N/A - Med Ordered
[2023-04-17 10:27] VITALS: BP 171/101; PULSE 117
[2023-04-17] MEDS: Furosemide 20 MG/2 ML VIAL IVPUSH (10:35)
[2023-04-17 14:59] VITALS: BP 139/88; PULSE 95; RESP 18; TEMP 36.8; O2SAT 93
--- NOTE | 2023-04-17 15:38 | PM.EVENT ---
Event Note Date of Service: 04/17/23 Event Note: seen on afternoon rounds continues to feel much better says she is not short of breath anymore denies abdl pain or rib pain tolerated diet well as per Hospitalist - SOB maybe from fluid overload; BNP was elevated no fever looks well abd soft; incision clean, no cellulitis, no induration poss. home patrica Time Spent With Patient Time: Total time managing care of this patient today ____ minutes.
[2023-04-17 19:39] VITALS: BP 148/90; PULSE 98; RESP 18; TEMP 36.7; O2SAT 96
[2023-04-17] MEDS: 0.9 % Sodium Chloride Flush 3 ML SYRINGE IVFLUSH (20:30)
[2023-04-18 03:40] VITALS: BP 128/70; PULSE 94; RESP 20; TEMP 36.1; O2SAT 93
[2023-04-18 07:24] VITALS: BP 140/80; PULSE 91; RESP 20; TEMP 36.2; O2SAT 95
--- NOTE | 2023-04-18 08:22 | P.PNGS_ITS ---
Subjective Subjective Date of Service: 04/18/23 Interval history: feels well says SOB has resolved no abdl pain no fever tolerating diet no GI complaints Physical Exam Vital Signs: Vital Signs: Last Vital Signs Temp 97.1 F 04/18/23 07:24 Pulse 91 04/18/23 07:24 Resp 20 04/18/23 07:24 BP 140/80 H 04/18/23 07:24 Pulse Ox 95 04/18/23 07:24 O2 Del Method Room Air 04/18/23 07:24 O2 Flow Rate 3 04/17/23 07:11 BMI result Body Mass Index 46.6 Const: Other: obese General: comfortable and no acute distress Resp: Effort & Inspection: normal respiratory effort Cardio: Rate: regular rate GI: Other: incision clean, dry, no redness, no tenderness, no discharge Palpation (GI): Soft to palpation, not firm, nontender and no guarding Objective Data Active Medications Azithromycin (Azithromycin 500 Mg Tablet) 500 mg PO Q24H [facility] Stop: 04/19/23 07:59 Last Admin: 04/17/23 07:55 Dose: 500 mg Documented By: TARA Heparin Sodium (Porcine) (Heparin Sodium,Porcine 5,000 Unit/Ml Vial) 5,000 unit SUBCUT Q8H [facility] Last Admin: 04/18/23 04:17 Dose: Not Given Documented By: MANA Non-Admin Reason: Patient Refused Morphine Sulfate (Morphine Sulfate 4 Mg/Ml Cartridge) 3 mg IVPUSH Q3H PRN; Protocol PRN Reason: Pain, Severe (Pain Scale 7-10) Oxycodone HCl (Oxycodone Hcl Immed Release 5 Mg Tablet) 5 mg PO Q6H PRN PRN Reason: Pain, Moderate(Pain Scale 4-6) Sodium Chloride (0.9 % Sodium Chloride Flush 3 Ml Syringe) 3 ml IVFLUSH QSHIFT [facility] Last Admin: 04/17/23 20:30 Dose: 3 ml Documented By: MANA Labs 04/17/23 08:24 04/17/23 08:24 Labs: Laboratory Results - last 24 hr 04/17/23 04/17/23 08:24 08:24 MCV 69.8 L MCH 20.6 L MCHC 29.5 L RDW 18.8 H Plt Count 352 MPV 9.5 Absolute Nucleated RBC 0.000 Nucleated RBC % (auto) 0.0 Anion Gap 13 Estim Creat Clear Calc 157.3 Estimated GFR > 60 Random Glucose 106 Calcium 8.8 Microbiology Microbiology Results: Microbiology 04/16/23 17:54 Blood Culture - Preliminary Blood - Venous No growth after 24 hours. 04/16/23 17:44 Blood Culture - Preliminary Blood - Venous No growth after 24 hours. Procedures Date of Service Date of Service: 04/18/23 Progress Note: A&P Assessment and plan (1) Shortness of breath: Status: Acute Assessment and Plan: resolved as per Hospitalist - likely from fluid overload, component of CHF? looks well abd soft, incision clean, no redness CT changes on hernia c/w postop plan dc home today if ok with Hospitalist ffup instructions given Time Spent With Patient Time: Total time managing care of this patient today ____ minutes. Quality Stroke Does the patient have a stroke diagnosis?: No VTE Prior VTE?: No VTE Risk Level:: Medical - low VTE Device Contraindication: N/A - Device Ordered VTE Drug Contraindication: N/A - Med Ordered
[2023-04-18] MEDS: Furosemide 20 MG/2 ML VIAL IVPUSH (08:36)
[2023-04-18] MEDS: Azithromycin 500 MG TABLET PO (08:36)
[2023-04-18] MEDS: 0.9 % Sodium Chloride Flush 3 ML SYRINGE IVFLUSH (08:37)
--- NOTE | 2023-04-18 10:18 | P.EN_ITS ---
Event Note Date of Service: 04/18/23 Event Note: Case discussed with hospitalist service Okay to DC home today Patient instructed to call a poultry hanger and primary care physician for follow- up She was given a phone number for Cardiology here I explained this instructions to her She is comfortable with the plan She has scheduled follow-up with me next week for removal of sutures. Time Spent With Patient Time: Total time managing care of this patient today ____ minutes.
--- NOTE | 2023-04-18 13:52 | MHC.CM.PN ---
PT MEDICALLY CLEARED FOR D/C HOME SELF CARE, PT ARRANGED TRANSPORT
--- NOTE | 2023-04-19 18:15 | P.DS_ITS ---
DS: Providers Provider Date of Service: 04/18/23 Date of admission: 04/16/23 16:24 Primary care physician: Unknown Physician Consults: 04/16/23 16:27 Consult to Hospitalist Routine Comment: Consulting Provider: Hospitalist Reason For Exam: Shortness of breath, status post hernia repair DS: Diagnosis Discharge Diagnosis (1) Shortness of breath: Status: Resolved (2) Status post repair of ventral hernia: Status: Acute (3) Morbid exogenous obesity: Status: Acute DS: Summary Hospital Course Hospital Course: 37F admitted via ED for SOB. She underwent repair of a supraumbilical hernia with mesh last April 14, 2023 as an outpt procedure. She had been doing well postop but complained of shortness of breath and right chest wall, right abdominal pain on April 16, 2023. She went to [facility] but was transfered to [facility] as she had her surgery done here. She had a CT scan in [place] showing fluid and air within the subcutaneous layer of her incision. The incision itself did not appear infected without any induration and redness. These findings were consistent with postop changes and did not appear to represent abscess or infection. Her CT angiogram did not show a PE. She did have elevated BNP and some pulmonary vascular congestion. She responded well to diuresis with good improvement of her SOB and right sided chest and abdominal pain. She continued to improve and her diet was advanced. She was followed by the Hospitalist service and her symptoms were deemed to be due to fluid overload with CHF likely precipated by her surgery/anesthesia. She was discharged with symptoms resolved on April 18, 2023. Time Spent with Patient Time attestation: Total time managing care of this patient today ____ minutes. Discharge coordination time: Less than 30 minutes Quality: Safe Use of Opioids Does Pt have an Active Cancer Diagnosis on the Problem List?: No Quality: Stroke Does the patient have a stroke diagnosis?: No Physical Exam Vital Signs: Vital Signs: Last Vital Signs Temp 97.1 F 04/18/23 07:24 Pulse 91 04/18/23 07:24 Resp 20 04/18/23 07:24 BP 140/80 H 04/18/23 07:24 Pulse Ox 95 04/18/23 07:24 O2 Del Method Room Air 04/18/23 07:24 O2 Flow Rate 3 04/17/23 07:11 BMI result Body Mass Index 46.6 Const: Other: morbidly obese General: comfortable and no acute distress Orientation/consciousness: patient oriented x3 Neck: Neck: Yes no lymphadenopathy Resp: Auscultation: clear to auscultation bilaterally Cardio: Rhythm: regular rhythm GI: Other: incision clean and dry, wellhealing, sutures in place Palpation (GI): Soft to palpation, nontender and no guarding Neuro: General: patient oriented x3 Extrem: General: No edema DS: Data Data Completed and Pending Completed studies during hospitalization [Text1]: Laboratory Results WBC 11.8 X10*3/uL (4.8-10.8) H 04/17/23 08:24 RBC 4.61 X10*6/uL (4.20-5.50) 04/17/23 08:24 Hgb 9.5 g/dl (12.0-16.0) L 04/17/23 08:24 Hct 32.2 % (37.0-47.0) L 04/17/23 08:24 MCV 69.8 fL (80.0-98.0) L 04/17/23 08:24 MCH 20.6 pg (27.0-33.0) L 04/17/23 08:24 MCHC 29.5 g/dl (31.0-35.0) L 04/17/23 08:24 RDW 18.8 % (11.0-16.0) H 04/17/23 08:24 Plt Count 352 X10*3/uL (160-400) 04/17/23 08:24 MPV 9.5 fL (9.4-12.3) 04/17/23 08:24 Immature Gran % (Auto) 0.4 % (0.0-0.4) 04/16/23 17:54 Neut % (Auto) 77.2 % (45-73) H 04/16/23 17:54 Lymph % (Auto) 15.5 % (20-40) L 04/16/23 17:54 [place] % (Auto) 5.4 % (2-11) 04/16/23 17:54 Eos % (Auto) 1.0 % (0-4) 04/16/23 17:54 Baso % (Auto) 0.5 % (0-2) 04/16/23 17:54 Lymph # (Auto) 1.9 X10*3/uL (1.2-4.9) 04/16/23 17:54 [place] # (Auto) 0.7 X10*3/uL (0.1-1.2) 04/16/23 17:54 Eos # (Auto) 0.1 X10*3/uL (0.0-0.4) 04/16/23 17:54 Baso # (Auto) 0.1 X10*3/uL (0.0-0.2) 04/16/23 17:54 Abs Immat Gran (auto) 0.05 X10*3/uL (0.00-0.03) H 04/16/23 17:54 Absolute Neuts (auto) 9.4 x10*3/uL (2.0-8.3) H 04/16/23 17:54 Absolute Nucleated RBC 0.000 X10*3/uL (0.0-0.012) 04/17/23 08:24 Nucleated RBC % (auto) 0.0 /100WBC (0.0-0.2) 04/17/23 08:24 Sodium 137 mmol/L (135-145) 04/17/23 08:24 Potassium 4.2 mmol/L (3.3-5.1) 04/17/23 08:24 Chloride 107 mmol/L (96-108) 04/17/23 08:24 Carbon Dioxide 21 mmol/L (22-29) L 04/17/23 08:24 Anion Gap 13 (12-20) 04/17/23 08:24 BUN 9 mg/dL (9-16) 04/17/23 08:24 Creatinine 0.60 mg/dL (0.5-1.4) 04/17/23 08:24 Estim Creat Clear Calc 157.3 04/17/23 08:24 Estimated GFR > 60 04/17/23 08:24 Random Glucose 106 mg/dL (60-115) 04/17/23 08:24 Lactic Acid 1.5 mmol/L (0.5-2.0) 04/16/23 17:54 Calcium 8.8 mg/dL (8.4-10.2) 04/17/23 08:24 Total Bilirubin 1.4 mg/dL (0.0-1.0) H 04/16/23 17:54 Direct Bilirubin 0.4 mg/dL (0.0-0.5) 04/16/23 17:54 AST 11 U/L (5-31) 04/16/23 17:54 ALT 11 U/L (0-31) 04/16/23 17:54 Alkaline Phosphatase 99 U/L (39-117) 04/16/23 17:54 B-Natriuretic Peptide 615 pg/mL (<100) H 04/16/23 17:54 Total Protein 6.4 g/dL (6.5-8.0) L 04/16/23 17:54 Albumin 3.8 g/dL (3.5-5.0) 04/16/23 17:54 Influenza Type A (PCR) NEGATIVE (Negative) 04/16/23 17:54 Influenza Type B (PCR) NEGATIVE (Negative) 04/16/23 17:54 RSV RNA Qual (PCR) NEGATIVE (Negative) 04/16/23 17:54 SARS-CoV-2 RNA (RT-PCR) NEGATIVE (Negative) 04/16/23 17:54 Impressions Chest X-Ray 04/16/23 18:30 IMPRESSION: 1. There is at least top normal cardiac size. There is pulmonary vascular congestion, without overt pulmonary edema. 2. Lung volumes are diminished. 3. No focal infiltrate or effusion is noted. Labs on day of discharge: Preliminary micro results at discharge 04/16/23 17:44 Blood Culture - Preliminary Blood - Venous No growth after 48 hours. 04/16/23 17:54 Blood Culture - Preliminary Blood - Venous No growth after 48 hours. Discharge Plan Discharge Anticipated Discharge Date/Time: 04/18/23 08:26 Patient Disposition: Home, Self-Care Discharge Diagnosis: shortness of breath, s/p repair of ventral hernia Referrals: Lan Mack MD [Physician] - 1 Week Physician,Unknown J [Primary Care Provider] - 1 Week Discharge Medications: New azithromycin 500 mg tablet 500 mg PO DAILY 14 Days Qty: 10 0RF Continued buprenorphine HCl 8 mg tablet, sublingual 8 mg sublingual TID albuterol sulfate [Ventolin HFA] 90 mcg/actuation HFA aerosol inhaler 2 puff inhalation Q4H PRN (Reason: dyspnea) oxycodone-acetaminophen [Percocet] 5-325 mg tablet 1 tab PO Q4-6H PRN (Reason: pain) Qty: 30 0RF Rx Instructions: Partial Fill upon patient request. ibuprofen 600 mg tablet 600 mg PO Q6H PRN (Reason: pain) Qty: 30 0RF lamotrigine 200 mg tablet 200 mg PO DAILY dextroamphetamine-amphetamine [Adderall XR] 20 mg capsule,extended release 24hr 2 cap PO DAILY Discharge Orders: Discharge Order (Routine); Ordered 04/18/23 Ordered By: Lan Mack Diet: Advance to usual diet Activity on Discharge: No heavy lifting Stand Alone Forms: Patient Portal Discharge page Activity Restrictions/Additional Instructions: no lifting allowed Call the recommended primary care physician and concrete mixing plant superintendent for follow-up as discussed If the incision area is tender, you may apply an ice pack for short intervals (No more than 20 minutes on, followed by at least 20 minutes off). Do not apply heat. Do not use creams, lotions, or topical antibiotics unless instructed to do so by your surgeon. These can cause infection or allergic reaction. No lifting more than 20 lbs Okay to shower No strenuous activities Call the office for follow-up in 1 week - with Dr. Mack Call Your Doctor If: -Your temperature exceeds 101.5? F -You experience excessive pain or swelling -You have an unexpected reaction to medication -You have excessive bleeding -You experience continued vomiting/nausea -Your incision begins to separate -Your incision shows signs of infection such as increased redness, swelling, excessive pain, drainage (light blood or clear fluid is normal) or heat Care Plan Goals: shortness of breath Health Concerns: had shortness of breath, elevated BNP Plan of Treatment: ffup in office continue meds Assessment: much improved Discharge Date/Time: 04/18/23 11:45
== END 2023-04-18 11:45 | disposition home or self-care (01) | DRG 206 ==
LOC: HO.ED 16:36 → HO.EDOVER 16:43 → HO.IMC 17:45
PROVIDERS: Admitting Provider Surgery; Emergency Provider Emergency Medicine Emergency Medical Services; Visit Provider Surgery
DX: I97.131 Postprocedural heart failure following other surgery (principal); E66.01 Morbid (severe) obesity due to excess calories; G89.18 Other acute postprocedural pain; F11.20 Opioid dependence, uncomplicated; Z68.42 Body mass index [BMI] 45.0-49.9, adult; I50.9 Heart failure, unspecified; F17.210 Nicotine dependence, cigarettes, uncomplicated; Z86.14 Personal history of Methicillin resistant Staphylococcus aureus infection; Z71.6 Tobacco abuse counseling; Z20.822 Contact with and (suspected) exposure to COVID-19; Z79.899 Other long term (current) drug therapy
CPT/HCPCS: 0241U; 36415; 71045; 80048; 80076; 83605; 83880; 85025; 85027; 87040; 99222; 99284; 99285; J0692; J1940

== ENCOUNTER → 2023-04-26 10:02 | Outpatient (BNVA) | payer OTHER, SELFPAY | PROVIDERS: Visit Provider Surgery ==

== ENCOUNTER 2023-04-26 13:43 | Outpatient (REF) | payer OTHER, SELFPAY ==
[2023-04-26 15:32] LABS: B Type Natriuretic Peptide 413 pg/mL (<100)
[2023-04-26 16:02] LABS: Anion Gap 11 (12-20); Blood Urea Nitrogen 9 mg/dL (9-16); Calcium 9.3 mg/dL (8.4-10.2); Carbon Dioxide 25 mmol/L (22-29); Chloride 108 mmol/L (96-108); Estimated Glomerular Filt Rate > 60; Glucose Random 100 mg/dL (60-115); Potassium 4.3 mmol/L (3.3-5.1); Sodium 140 mmol/L (135-145)
== END 2023-04-26 13:44 | disposition home or self-care (01) ==
LOC: HO.LAB 13:43
PROVIDERS: Visit Provider Internal Medicine Cardiovascular Disease
DX: I50.9 Heart failure, unspecified (principal)
CPT/HCPCS: 36415; 80048; 83880; 99202

== ENCOUNTER → 2023-04-27 10:04 | Outpatient (REF) | payer OTHER, SELFPAY ==
--- NOTE | 2023-04-27 10:09 | CA_ITS ---
Transthoracic Echocardiogram Patient (Last, First, Middle): Yvonne Anderson, Gender: Female Date of : 1985 Age: 37 Procedure Date: 04/27/2023 Procedure Type: Transthoracic Echocardiogram Location: OP Height: 160.02 cm Weight: 111.13 kg BSA: 2.11 m2 Heart Rate: 101 bpm BP: 135 / 90 mmHg Division Sergeant: TENZIN Referring MD: Heath Clarke MD Symptoms: I50.9 - Heart failure, unspecified Study Quality: Fair/Contrast ECG Rhythm: Sinus tachycardia Conclusions: - Moderately increased left ventricular cavity size. - The left ventricular systolic function is severely decreased. The calculated ejection fraction is 24% by biplane method. - Evidence suggests grade III (severe) diastolic dysfunction. - The left atrium is moderately dilated. - There is mild to moderate mitral valve regurgitation. Findings Procedure Information Contrast agent, definity, is being given per protocol without apparent complications. Left Ventricle Moderately increased left ventricular cavity size. There is mildly increased left ventricular wall thickness. The left ventricular systolic function is severely decreased. The calculated ejection fraction is 24% by biplane method. There is severe global hypokinesis. E/E prime ratio is >15, consistent with elevated filling pressures. Evidence suggests grade III (severe) diastolic dysfunction. Right Ventricle Normal right ventricular cavity size and systolic function. Atria The left atrium is moderately dilated. The right atrium is mildly dilated. Aortic Valve The aortic valve was not well visualized. There is no aortic valve stenosis. There is no aortic valve regurgitation. Mitral Valve The posterior mitral leaflet has restricted mobility. There is mild mitral annular calcification. There is mild to moderate mitral valve regurgitation. There is no mitral valve stenosis. Increased mitral gradients due to mitral regurgitation/diastolic dysfunction. Pulmonic Valve The pulmonic valve is likely normal. Tricuspid Valve There is trace tricuspid valve regurgitation. There is no evidence of pulmonary hypertension. Great Vessels The asc aorta is normal in size. Venous The inferior vena cava is normal in size and collapses greater than 50% with inspiration. Pericardium/Pleural There is a trivial pericardial effusion. Prior Study Comparison No prior study available for comparison. Measurements 2D Linear Measurements IVSd: 1.05 0.6-0.9/0.6-1.0 cm LVIDd: 6.09 3.9-5.3/4.2-5.9 cm LVIDd Index: 2.89 2.4-3.2/2.2-3.1 cm/m2 LVIDs: 5.36 2.0-3.6 cm LVPWd: 1.19 0.7-1.1 cm LA Diam: 5.40 2.7-3.8/3.0-4.0 cm LAIDs Index: 2.56 1.5-2.3 cm/m2 LV Mass: 366.23 67-162/88-224 g LV Mass Index: 173.57 43-95/49-115 g/m2 LVOT Diam: 2.30 3.0+(-)1.3 cm 2D Systolic Function EF 4C: 24.90 >55% EF 2C: 24.50 >55% EF BiP: 24.30 >55% Mitral Valve MV VTI: 0.30 MV Pk Blake: 1.88 MV Mn Blake: 1.35 MV Pk Grad: 14.00 MV Mn Grad: 8.00 MV Pk E: 1.50 MV Decel Time: 172.00 E'Lateral: 7.72 E'Medial: 3.70 E/E' Med: 40.50 E/E' Lat: 19.40 PHT: 50.00 MVA PHT: 4.40 MVA Continuity: 2.25 Decel Grady: 8.71 MR Vol - PW Dopp: 30.82 MR VTI: 1.34 MR ERO: 23.00 MR Alias Blake: 0.38 MR RAD: 0.70 Aortic Valve AoV Pk Blake: 1.33 AoV Mn Blake: 1.02 AoV VTI: 0.23 AoV Pk Grad: 7.00 Aov Mn Grad: 5.00 ANIL Cont.VTI: 2.90 LVOT LVOT Pk Blake: 0.94 LVOT Mn Blake: 0.70 LVOT VTI: 0.16 LVOT Pk Grad: 4.00 LVOT Mn Grad: 3.00 LVOT Diam: 2.30 LVOT Area: 4.15 Diastolic Function MV Pk E: 1.50 E'Medial: 3.70 E/E' Med: 40.50 E' Laterial: 7.72 E/E' Lat: 19.40 Right Ventricle TAPSE (mm): 22.60 TVS' Blake: 12.40 Tricuspid Valve TR Pk Blake: 1.93 TR Pk Grad: 15.00 RA Press: 3.00 RVSP: 18.00 Great Vessels Aorta Sinus of Valsalva: 3.30 2.0-3.5 cm Ao Asc: 3.10 2.1-3.4 cm Pulmonary Valve PV Pk Blake: 0.87 Peak PV Grad: 3.00 Updated in Other Vendor System with Status of Final Barrett Rico MD electronically signed on 04/28/2023 12:56:13 PM with status of Final
== END ==
LOC: HO.CARD 10:04
PROVIDERS: Visit Provider Internal Medicine Cardiovascular Disease
DX: I50.9 Heart failure, unspecified (principal)
CPT/HCPCS: 93306; Q9957

== ENCOUNTER 2023-05-03 09:29 | Outpatient (REF) | payer OTHER, SELFPAY ==
[2023-05-03 10:59] LABS: Anion Gap 13 (12-20); Blood Urea Nitrogen 13 mg/dL (9-16); Calcium 9.5 mg/dL (8.4-10.2); Carbon Dioxide 26 mmol/L (22-29); Chloride 103 mmol/L (96-108); Estimated Glomerular Filt Rate > 60; Glucose Random 104 mg/dL (60-115); Potassium 4.3 mmol/L (3.3-5.1); Sodium 138 mmol/L (135-145)
[2023-05-03 11:24] LABS: B Type Natriuretic Peptide 113 pg/mL (<100)
== END 2023-05-03 09:30 | disposition home or self-care (01) ==
LOC: HO.LAB 09:29
PROVIDERS: Visit Provider Internal Medicine Cardiovascular Disease
DX: I50.9 Heart failure, unspecified (principal)
CPT/HCPCS: 36415; 80048; 83880

== ENCOUNTER → 2023-05-25 08:13 | Outpatient (REF) | payer OTHER, SELFPAY ==
--- NOTE | ~2023-05-25 | NM_ITS ---
EXERCISE MYOCARDIAL PERFUSION STUDY INDICATION: Congestive heart failure TECHNIQUE: The patient was brought in for an exercise perfusion study on 05/25/2023. Patient performed exercise as per Rudy protocol and was injected 40 mCi of sestamibi once target heart rate was achieved. Images were obtained using the SPECT gamma camera interlaced with the gating device. Images were obtained in supine position. Resting perfusion study was performed on 05/30/2023. Patient was administered 40 mCi of sestamibi intravenously at rest. Images were then obtained in supine position. Images were processed with the software and compared side to side in short axis, horizontal long axis and vertical long axis views. Total DLP 155mGy-cm. FINDINGS: Raw images were reviewed. The stress perfusion study showed mildly reduced tracer uptake towards the apex, inferior apex. No major change with CT attenuation correction. The gated study shows diminished LV systolic function with calculated LVEF of 36%. LV cavity is dilated in size. The gated study shows globally reduced wall thickening and contraction of segments. Resting study shows reduced tracer uptake at the apex and adjacent inferior apex. Gating at rest reveals globally reduced contractility with ejection fraction at 33%. The findings are consistent with fixed defect at the apex and adjacent inferior apex. Possibly artifactual. No clear reversible defects. NM/NM cardiolite stress test IMPRESSION: 1. Myocardial perfusion imaging study shows small fixed apical defect that is probably artifactual. Otherwise, likely normal perfusion. 2. Gated LVEF is 36% during stress and 33% during rest. Correlate with echocardiogram.. 3. Transient ischemic dilatation not present, but LV chamber markedly dilated. 4. Overall, probably nonischemic cardiomyopathy. EKG component of the test reported separately.
--- NOTE | 2023-05-25 08:31 | CA_ITS ---
Acquisition Time: 2023-05-25 08:23:43 Total Exercise Time: 00:05:01 Test Indications: CHF Medications: FUROSEMIDE VALSARTAN Protocol: KRYSTAL Max HR: 162 BPM 89% of Pred: 181 BPM Max BP: 140/070 mmHG Max Work Load: 4.6 METS Exercise stress test exercise 5 min 1 sec of Krystal protocol briefly achieving 88% MPHRm grade reduced to 4.8% due to request for moderate SOB, no chest discomfort, with isolated PVC, with normotensive response to exercise, without EKG changes. Breathing returned to normal with rest. Nuclear images pending. Test reviewed with Dr. Rico. Referred By: Heath Clarke Overread By: Leonela Persaud
== END ==
LOC: HO.CARD 08:13
PROVIDERS: Visit Provider Internal Medicine Cardiovascular Disease
DX: I50.9 Heart failure, unspecified (principal)
CPT/HCPCS: 78452; 93017; A9500; J0280; J2785

== ENCOUNTER → 2023-05-25 08:31 | Outpatient (BNV) | payer OTHER, SELFPAY | PROVIDERS: Visit Provider Nurse Practitioner | DX: I50.9 Heart failure, unspecified (principal) | CPT/HCPCS: 78452; 93016; 93018 ==

== ENCOUNTER 2023-06-12 15:24 | Outpatient (AMB) | payer OTHER, SELFPAY ==
[2023-06-12 15:31] VITALS: BP 140/90; PULSE 90; BMI 43.0
--- NOTE | 2023-06-12 15:31 | A.OFFVIS_ITS ---
Intake Vital Signs 06/12/23 15:31 Height 5 ft 3 in Weight 242 lb 8.136 oz BMI 43.0 BP 140/90 H Blood Pressure Location Lt brachial Position Sitting Pulse 90 Pulse Source Pulse Oximeter Intake Visit Reasons: follow-up after testing Intake Note: f/up after testing Medical Social Worker Required: No Allergies naloxone [NALOXONE] Allergy (Severe, Verified 06/12/23 15:36) Anaphylaxis nyloxone Allergy (Unknown, Verified 06/12/23 15:36) throat paralysis, anaphylaxis shellfish derived Adverse Reaction (Intermediate, Verified 06/12/23 15:36) Vomiting ([place] Crab legs) Medication List - Last Reconciled 06/12/23 by ROBE Abreu albuterol sulfate 90 mcg/actuation (Ventolin HFA) 2 puffs inhalation Q4H PRN buprenorphine HCl 8 mg sublingual TID dextroamphetamine-amphetamine 20 mg ER (Adderall XR) 2 caps PO DAILY empagliflozin (Jardiance) 10 mg PO DAILY furosemide (Lasix) 40 mg PO DAILY ibuprofen 600 mg PO Q6H PRN lamotrigine 200 mg PO DAILY valsartan 80 mg PO DAILY HPI follow-up after testing HPI Details Yvonne is a 37-year-old female with no prior cardiac history who recently has hernia surgery then was having shortness of breath and orthopnea and [place] [facility] [place] A [place] scan of the chest showed findings consistent with pulmonary edema, BNP in the 600 range. She was given IV Lasix and outpatient cardiology follow-up arranged. On her last visit she was noted to have clinical signs of fluid overload. She was started on daily Lasix and valsartan. Echocardiogram showed significantly reduced EF. Jardiance was added. Nuclear stress test was done and she now presents for follow-up. Today she reports that she is feeling much better overall. She says that her breathing is back to normal. She tells me that her breathing has never been perfect because she smokes. She denies PND, orthopnea or edema. She denies any significant weight gain or weight loss. She has no chest discomfort at rest or with activity. No dizziness, presyncope, syncope, falls. Taking her medications as directed. Tells me that her mother's identical twin has heart problems with pacemaker/defibrillator in place. He has no known family history of sudden . [facility] Medical History Buprenorphine dependence History of opioid abuse Hx MRSA infection Hx of bronchitis Morbid exogenous obesity Seasonal depression Shortness of breath Supraumbilical hernia Surgical History History of 3 sections History of hernia repair (~04/13/23) History of incisional hernia repair History of tonsillectomy History of tubal ligation Status post repair of ventral hernia Family History Maternal Aunt Cervical cancer Social History Household Members: Family Housing: House Do you presently have visiting nurse or other home services: No Alcohol intake: former Patient Tobacco Use Status: Current everyday Tobacco user Tobacco use type: Cigarette Cigarette Packs Per Day: 1 Cigarettes Per Day: 20.0 Second Hand Smoke Exposure: No service: No Current occupational status: unemployed Review of Systems Const All systems reviewed & are unremarkable except as noted in HPI and below ENT Reports dizziness Card Denies chest pain, Denies chest pain at rest, Denies chest pain with activity, Denies rapid heart rate, Denies pedal edema, Denies edema, Denies leg edema, Denies lightheadedness, Denies palpitations, Denies dyspnea, Reports dyspnea on exertion and Denies orthopnea Resp Denies cough, Denies dyspnea and Reports dyspnea on exertion GI Denies hematochezia and Denies change in stool character Musc Denies abnormal gait, Reports limited range of motion, Reports muscle cramps, Denies muscle weakness, Denies numbness, Denies radiating pain into limb, Denies stiffness and Denies tingling Neuro Denies abnormal gait, Reports dizziness, Denies numbness and Denies tingling Endo Denies palpitations Physical Exam Vital Signs: Last Vital Signs Pulse 90 06/12/23 15:31 BP 140/90 H 06/12/23 15:31 BMI result Body Mass Index 43.0 Const General: cooperative, healthy appearing, comfortable and no acute distress Orientation/consciousness: patient oriented x3 Neck Neck: Yes normal visual inspection Resp Effort & Inspection: normal respiratory effort Auscultation: clear to auscultation bilaterally, no rales, no rhonchi and wheezes (Few expiratory wheezes noted. She states typical for her) Cardio Jugular venous distension: no JVD Rate: regular rate Rhythm: regular rhythm Heart sounds: S1 normal heart sound present, S2 normal heart sound present, no murmurs and no rubs Neuro General: patient oriented x3 Extrem Other: Mild puffiness to lower extremities but she states this is her normal leg appearance, no pitting noted General: Yes normal to inspection Psych Appearance: grossly normal Mental Status: mental status grossly normal Speech and movement: Normal speech and movement present Assessment & Plan Assessment & Plan (1) Congestive heart failure: Code(s): I50.9 - Heart failure, unspecified Plan: Newer diagnosis of congestive heart failure. Treated initially in the emergency room and referred to Cardiology. She at signs of fluid overload on last visit was started on Lasix and valsartan. Echocardiogram done 04/27/2023 showed EF 24%, grade 3 diastolic dysfunction, left atrium moderately dilated, [id number] MR. She then had nuclear stress test on 05/30/2023 showing exercise 5 minutes, moderate shortness of breath, no chest discomfort, no EKG changes with myocardial perfusion imaging showing a small fixed apical defect suggestive of artifact, EF 36% with stress and 33% with rest. Most likely nonischemic cardiomyopathy. Today she reports her breathing is back to its baseline normal. She continues to smoke and says that she has some mild shortness of breath at times from that. She denies PND, orthopnea or edema. Preliminary findings of nonischemic cardiomyopathy discussed with her. She tells me that heart disease runs in her family and that her mother's identical twin has a defibrillator. Will check a cardiac MRI to assess morphology. Will stop valsartan and changed to Entresto 24/26 mg b.i.d.. BMP and BNP in 1 week. Will start on carvedilol 3.125 mg b.i.d.. Continue Jardiance, Lasix. Instructed to call if she has any new lightheadedness or any increased shortness of breath. Emergency care if needed for symptoms. Cardiology follow-up in 1 month, sooner if needed. (2) Cardiomyopathy: Code(s): I42.9 - Cardiomyopathy, unspecified Plan: As above, new finding Orders: Orders Basic Metabolic Panel 1 Week I42.9 - Cardiomyopathy, unspecified B Type Natriuretic Peptide 1 Week I42.9 - Cardiomyopathy, unspecified MR cardiac morph fnct w con Today I42.9 - Cardiomyopathy, unspecified Medications: New sacubitril-valsartan 24-26 mg (Entresto) 1 tab PO BID 60 tabs 5RF I42.9 - Cardiomyopathy, unspecified, I50.9 - Heart failure, unspecified carvedilol must administer with a meal/food 3.125 mg PO BID 60 tabs 5RF I42.9 - Cardiomyopathy, unspecified Discontinued valsartan Discontinued Reason: Doctor's Order 80 mg PO DAILY 30 tabs 1RF I50.9 - Heart failure, unspecified Coding Level of Care Code Est Pt Level 4 (12935) Diagnoses Congestive heart failure I50.9 Cardiomyopathy I42.9 Time Spent (min) 28 Comment Chart review, documentation, interview, assessment, MD discussion
== END 2023-06-12 16:14 | disposition home or self-care (01) ==
PROVIDERS: Visit Provider Nurse Practitioner Family
DX: I50.9 Heart failure, unspecified (principal); I42.9 Cardiomyopathy, unspecified
CPT/HCPCS: 99214

== ENCOUNTER → 2023-06-12 15:24 | Outpatient (BNVA) | payer OTHER, SELFPAY | PROVIDERS: Visit Provider Nurse Practitioner Family | DX: I42.9 Cardiomyopathy, unspecified (principal); I50.9 Heart failure, unspecified; I11.0 Hypertensive heart disease with heart failure | CPT/HCPCS: 99212 ==

== ENCOUNTER 2023-09-05 13:04 | Outpatient (REF) | payer OTHER, SELFPAY ==
[2023-09-05 14:13] LABS: Anion Gap 14 (12-20); Blood Urea Nitrogen 9 mg/dL (9-16); Calcium 9.3 mg/dL (8.4-10.2); Carbon Dioxide 25 mmol/L (22-29); Chloride 104 mmol/L (96-108); Estimated Glomerular Filt Rate > 60; Glucose Random 115 mg/dL (60-115); Potassium 3.7 mmol/L (3.3-5.1); Sodium 139 mmol/L (135-145)
[2023-09-05 14:14] LABS: B Type Natriuretic Peptide 69 pg/mL (<100)
== END 2023-09-05 13:05 | disposition home or self-care (01) ==
LOC: HO.LAB 13:04
PROVIDERS: Visit Provider Nurse Practitioner Family
DX: I42.9 Cardiomyopathy, unspecified (principal)
CPT/HCPCS: 36415; 80048; 83880

== ENCOUNTER 2023-09-20 15:33 | Outpatient (AMB) | payer OTHER, SELFPAY ==
[2023-09-20 15:52] VITALS: BP 140/82; PULSE 55; BMI 42.3
--- NOTE | 2023-09-20 15:52 | A.OFFVIS_ITS ---
Intake Vital Signs 09/20/23 15:52 Height 5 ft 3 in Weight 238 lb 8.642 oz BMI 42.3 BP 140/82 H Blood Pressure Location Rt brachial Position Sitting Pulse 55 Pulse Source Pulse Oximeter Intake Visit Reasons: f/u Historic [employer] Costume Maker Required: No Allergies naloxone [NALOXONE] Allergy (Severe, Verified 09/20/23 15:54) Anaphylaxis nyloxone Allergy (Unknown, Verified 09/20/23 15:54) throat paralysis, anaphylaxis shellfish derived Adverse Reaction (Intermediate, Verified 09/20/23 15:54) Vomiting ([place] Crab legs) Medication List - Last Reconciled 09/20/23 by ROBE Abreu albuterol sulfate 90 mcg/actuation (Ventolin HFA) 2 puffs inhalation Q4H PRN buprenorphine HCl 8 mg sublingual TID carvedilol 3.125 mg PO BID dextroamphetamine-amphetamine 20 mg ER (Adderall XR) 2 caps PO DAILY empagliflozin (Jardiance) 10 mg PO DAILY furosemide 40 mg PO DAILY ibuprofen 600 mg PO Q6H PRN lamotrigine 200 mg PO DAILY sacubitril-valsartan 24-26 mg (Entresto) 1 tab PO BID HPI f/u HPI Details Yvonne is a 37-year-old female with no prior cardiac history who recently has hernia surgery then was having shortness of breath and orthopnea and came in by ambulance to [facility] [place]. A CT scan of the chest showed findings consistent with pulmonary edema, BNP in the 600 range. She was given IV Lasix and outpatient cardiology follow-up arranged. On her last visit she was noted to have clinical signs of fluid overload. She was started on daily Lasix and valsartan. Echocardiogram showed significantly reduced EF. Jardiance was added. Cardiac MRI was done and she now presents for follow-up. Today she reports she has been doing well since her last visit. She says her breathing is comfortable. No PND, orthopnea. Leg edema has improved. No chest discomfort, palpitations, presyncope, syncope, PND, orthopnea or edema. Takes all meds as directed. She is noticing a sensitivity to salt. Her face will get flushed, ears red and leg swollen if she eats salty foods. Doing normal day-to-day activities. [facility] Medical History Shortness of breath History of opioid abuse Hx MRSA infection Seasonal depression Hx of bronchitis Buprenorphine dependence Morbid exogenous obesity Supraumbilical hernia Surgical History History of hernia repair (~04/13/23) Status post repair of ventral hernia History of tonsillectomy History of tubal ligation History of 3 sections History of incisional hernia repair Family History Maternal Aunt Cervical cancer Social History Household Members: Family Housing: House Do you presently have visiting nurse or other home services: No Alcohol intake: former Patient Tobacco Use Status: Current everyday Tobacco user Tobacco use type: Cigarette Cigarette Packs Per Day: 1 Cigarettes Per Day: 20.0 Second Hand Smoke Exposure: No service: No Current occupational status: unemployed Review of Systems Const All systems reviewed & are unremarkable except as noted in HPI and below ENT Denies dizziness Card Denies chest pain, Denies chest pain at rest, Denies chest pain with activity, Denies rapid heart rate, Denies pedal edema, Denies edema, Denies leg edema, Denies lightheadedness, Denies palpitations, Denies dyspnea, Denies dyspnea on exertion and Denies orthopnea Resp Denies cough, Denies dyspnea and Denies dyspnea on exertion GI Denies hematochezia and Denies change in stool character Musc Denies abnormal gait, Denies limited range of motion, Denies muscle cramps, Denies muscle weakness, Denies numbness, Denies radiating pain into limb, Denies stiffness and Denies tingling Neuro Denies abnormal gait, Denies dizziness, Denies numbness and Denies tingling Endo Denies palpitations Physical Exam Vital Signs: Last Vital Signs Pulse 55 09/20/23 15:52 BP 140/82 H 09/20/23 15:52 BMI result Body Mass Index 42.3 Const General: cooperative, healthy appearing, comfortable and no acute distress Orientation/consciousness: patient oriented x3 Neck Neck: Yes normal visual inspection Resp Effort & Inspection: normal respiratory effort Auscultation: clear to auscultation bilaterally, no crackles, no rales, no rho nchi and no wheezes Cardio Jugular venous distension: no JVD Rate: regular rate Rhythm: regular rhythm Heart sounds: S1 normal heart sound present, S2 normal heart sound present, no murmurs and no rubs Skin General skin exam: no rashes or lesions noted Neuro General: patient oriented x3 Extrem General: Yes normal to inspection, No no pedal edema and No calf tenderness Psych Appearance: grossly normal Mental Status: mental status grossly normal Speech and movement: Normal speech and movement present Assessment & Plan Assessment & Plan (1) Congestive heart failure: Code(s): I50.9 - Heart failure, unspecified Plan: Newer diagnosis of congestive heart failure, April 2023. Treated initially in the emergency room and referred to Cardiology. She was started on Lasix and valsartan initially. Echocardiogram done 04/27/2023 showed EF 24%, grade 3 diastolic dysfunction, left atrium moderately dilated, [id number] MR. She then had nuclear stress test on 05/30/2023 showing exercise 5 minutes, moderate shortness of breath, no chest discomfort, no EKG changes with myocardial perf usion imaging showing a small fixed apical defect suggestive of artifact, EF 36% with stress and 33% with rest. Most likely nonischemic cardiomyopathy. A cardiac MRI was done on 09/07/2023 showing enlarged left ventricle, EF 43%, scattered foci of increased [place] T1 signal in the myocardia are in keeping with the nonischemic cardiomyopathy, likely dilated cardiomyopathy. Reviewed results with her in detail. Today she reports her breathing normal, no leg edema, weight stable. Blood pressure mildly elevated today. Will increase her Entresto, continue carvedilol at current dose. Continue Jardiance. Labs done on 09/05/2023 showed potassium 3.7, creatinine 0.75, BNP 69. She tells me she is not urinating much from her Lasix. With normal BNP will have her reduce Lasix by half. If she starts with leg swelling she is to resume her prior dose. Cardiology follow-up in 3 month, sooner if needed. (2) Cardiomyopathy: Code(s): I42.9 - Cardiomyopathy, unspecified Plan: As above, new finding Medications: New sacubitril-valsartan 49-51 mg (Entresto) 1 tab PO BID 60 tabs 5RF Discontinued sacubitril-valsartan 24-26 mg (Entresto) Discontinued Reason: Doctor's Order 1 tab PO BID 60 tabs 5RF I42.9 - Cardiomyopathy, unspecified, I50.9 - Heart failure, unspecified Coding Level of Care Code Est Pt Level 4 (45959) Diagnoses Congestive heart failure I50.9 Cardiomyopathy I42.9 Time Spent (min) 28
== END 2023-09-20 17:04 | disposition home or self-care (01) ==
PROVIDERS: Visit Provider Nurse Practitioner Family
DX: I50.9 Heart failure, unspecified (principal); I42.9 Cardiomyopathy, unspecified
CPT/HCPCS: 99214

== ENCOUNTER → 2023-09-20 15:33 | Outpatient (BNVA) | payer OTHER, SELFPAY | PROVIDERS: Visit Provider Nurse Practitioner Family | DX: I50.9 Heart failure, unspecified (principal); I42.9 Cardiomyopathy, unspecified | CPT/HCPCS: 99212 ==

== ENCOUNTER 2025-01-13 13:40 | Outpatient (REF) | payer OTHER, SELFPAY ==
[2025-01-13 15:16] LABS: Hematocrit 40.5 % (37.0-47.0); Hemoglobin 12.6 g/dl (12.0-16.0); Mean Corpuscular HGB Conc 31.1 g/dl (31.0-35.0); Mean Corpuscular Volume 70.7 fL (80.0-98.0); Mean Platelet Volume 9.2 fL (9.4-12.3); Platelet Count 468 X10*3/uL (160-400); Red Blood Count 5.73 X10*6/uL (4.20-5.50); Red Cell Distribution Width 19.2 % (11.0-16.0); White Blood Count 12.9 X10*3/uL (4.8-10.8)
[2025-01-13 16:19] LABS: Anion Gap 12 (12-20); Blood Urea Nitrogen 10 mg/dL (9-16); Calcium 9.4 mg/dL (8.4-10.2); Carbon Dioxide 25 mmol/L (22-29); Chloride 107 mmol/L (96-108); Estimated Glomerular Filt Rate > 60; Glucose Random 93 mg/dL (60-115); Potassium 3.3 mmol/L (3.3-5.1); Sodium 141 mmol/L (135-145)
[2025-01-13 16:25] LABS: TSH reflex Free T4 1.33 uIU/mL (0.32-4.0)
[2025-01-13 16:35] LABS: B Type Natriuretic Peptide 11 pg/mL (<100)
== END 2025-01-13 13:41 | disposition home or self-care (01) ==
LOC: HO.LAB 13:40
PROVIDERS: Visit Provider Internal Medicine Cardiovascular Disease
DX: I50.20 Unspecified systolic (congestive) heart failure (principal)
CPT/HCPCS: 36415; 80048; 83735; 83880; 84443; 85027; 93005; 99212

== ENCOUNTER 2025-01-13 13:40 | Outpatient (AMB) | payer OTHER, SELFPAY ==
[2025-01-13 13:52] VITALS: BP 130/78; PULSE 111; BMI 40.2
--- NOTE | 2025-01-13 13:52 | A.OFFVIS_ITS ---
Vital Signs 01/13/25 13:52 Height 5 ft 3 in Weight 227 lb 1.218 oz BMI 40.2 BP 130/78 Blood Pressure Location Lt brachial Position Sitting Pulse 111 H Intake Visit Reasons: over due 1 year f/up Intake Note: Overdau follow-up with ekg feeling ok Director Process Engineering Required: No Allergies naloxone [NALOXONE] Allergy (Severe, Verified 09/20/23 15:54) Anaphylaxis nyloxone Allergy (Unknown, Verified 09/20/23 15:54) throat paralysis, anaphylaxis shellfish derived Adverse Reaction (Intermediate, Verified 09/20/23 15:54) Vomiting ([place] Crab legs) Medication List - Last Reconciled 01/13/25 by Heath Clarke MD albuterol sulfate 90 mcg/actuation (Ventolin HFA) 2 puffs inhalation Q4H PRN buprenorphine HCl 8 mg sublingual TID carvedilol 3.125 mg PO BID dextroamphetamine-amphetamine 20 mg ER (Adderall XR) 2 caps PO DAILY empagliflozin (Jardiance) 10 mg PO DAILY 90 days furosemide 40 mg PO DAILY ibuprofen 300 mg PO Q6H PRN lamotrigine 200 mg PO DAILY sacubitril-valsartan 49-51 mg (Entresto) 1 tab PO BID HPI Comments Details: Yvonne comes for follow-up after a very long gap. She has still been getting prescriptions for medications through your office. She comes in today and is noted to be having sinus tachycardia, she says that she is anxious and stressed out as she visited [employer] of [employer] today. She denies any heart failure symptoms. She is not very active and exercising but says remains busy around the house taking care of her disabled children. She is not had any symptoms of worsening shortness of breath, orthopnea, PND, leg edema. She has been taking all medications. No lightheadedness, syncope. No chest pain. No prolonged palpitation irregular heartbeat. Currently on good neurohormonal modulation with carvedilol, Jardiance as well as Entresto. Currently also taking Lasix 40 mg daily. [facility] Medical History Shortness of breath History of opioid abuse Hx MRSA infection Seasonal depression Hx of bronchitis Buprenorphine dependence Morbid exogenous obesity Supraumbilical hernia Surgical History History of hernia repair (~04/13/23) Status post repair of ventral hernia History of tonsillectomy History of tubal ligation History of 3 sections History of incisional hernia repair Family History Maternal Aunt Cervical cancer Social History Household Members: Family Housing: House Do you presently have visiting nurse or other home services: No Alcohol intake: former Patient Tobacco Use Status: Current everyday Tobacco user Tobacco use type: Cigarette Cigarette Packs Per Day: 1 Cigarettes Per Day: 20.0 Second Hand Smoke Exposure: No service: No Current occupational status: unemployed Review of Systems Const Denies chills, Denies fatigue, Denies fever(s), Denies frequent falls, Denies weakness, Denies weight gain and Denies weight loss ENT Denies dizziness Card Denies chest pain, Denies leg edema, Denies lightheadedness, Denies palpitations, Denies dyspnea, Denies dyspnea on exertion, Denies orthopnea and Denies other (loss of consciousness) Resp Denies cough, Denies dyspnea and Denies dyspnea on exertion GI Denies hematochezia and Denies change in stool character Musc Denies abnormal gait, Denies muscle weakness, Denies numbness, Denies radiating pain into limb and Denies tingling Neuro Denies abnormal gait, Denies dizziness, Denies frequent falls, Denies numbness, Denies tingling and Denies weakness Endo Denies fatigue and Denies palpitations Physical Exam Vital Signs: Last Vital Signs Pulse 111 H 01/13/25 13:52 BP 130/78 01/13/25 13:52 BMI result Body Mass Index 40.2 Const General: cooperative, healthy appearing, comfortable and no acute distress Nutritional Appearance: obese morbidly obese Orientation/consciousness: patient oriented x3 Neck Neck: Yes normal visual inspection Resp Effort & Inspection: normal respiratory effort Auscultation: clear to auscultation bilaterally, no crackles, no rales, no rhonchi and no wheezes Cardio Jugular venous distension: no JVD Rate: tachycardic Rhythm: regular rhythm Heart sounds: S1 normal heart sound present, S2 normal heart sound present, no murmurs and no rubs Skin General skin exam: no rashes or lesions noted Neuro General: patient oriented x3 Extrem General: Yes normal to inspection, No no pedal edema and No calf tenderness Psych Appearance: grossly normal Mental Status: mental status grossly normal Speech and movement: Normal speech and movement present Office Procedures EKG Details: EKG shows sinus tachycardia with left posterior fascicular block 14520-[id number], Complete Assessment & Plan Assessment & Plan (1) Heart failure with reduced ejection fraction: Code(s): I50.20 - Unspecified systolic (congestive) heart failure Category: Medical Plan: Prior history of heart failure with reduced ejection fraction, nonischemic suspected to be dilated cardiomyopathy although has done very well. Last BNP checked in September 2023 had normalized. Clinically she was doing extremely well with no worsening signs of heart failure. Currently on good neurohormonal modulator along with diuretic regimen. She probably does not require this high er diuretic regimen will reduce Lasix to 20 mg daily. Check labs today including TSH as well as CBC. She was anemic in the past and it is possible that anemia might be driving her tachycardia and also intravascular volume depletion might be driving. I have advised importance of follow-up visits and blood work. She also needs PCP. Encouraged to participate in more aggressive lifestyle modification with weight loss program. Smoking cessation was advised. Regular physical activity was recommended. Will increase carvedilol to 6.25 mg b.i.d. and decrease Lasix to 20 mg daily. Continue Entresto and Jardiance at current dose. Follow-up echocardiogram in near future. If echocardiogram shows normalized LV ejection fraction may discontinue Lasix and long run. Signs and symptoms of heart failure were discussed and she understands. Follow up in the clinic in 3 months time, sooner p.r.n.. Thank you for allowing me to partake in his care Orders: Orders B Type Natriuretic Peptide Today Heath Clarke MD I50.20 - Unspecified systolic (congestive) heart failure Magnesium Today Heath Clarke MD I50.20 - Unspecified systolic (congestive) heart failure TSH reflex Free T4 Today Heath Clarke MD I50.20 - Unspecified systolic (jackie estive) heart failure CA echo transthoracic complete Today Heath Clarke MD I50.20 - Unspecified systolic (congestive) heart failure Basic Metabolic Panel Today Heath Clarke MD I50.20 - Unspecified systolic (congestive) heart failure Complete Blood Count no Diff Today Heath Clarke MD I50.20 - Unspecified systolic (congestive) heart failure Medications: New carvedilol (Coreg) must administer with a meal/food 6.25 mg PO BID 60 tabs 5RF Heath Clarke MD Changed From ibuprofen 600 mg PO Q6H PRN 30 tabs 0RF pain To ibuprofen 300 mg PO Q6H PRN Lan Mack MD From furosemide 40 mg PO DAILY 90 tabs 3RF I50.9 - Heart failure, unspecified To furosemide 20 mg (1/2 x 40 mg) PO DAILY 90 tabs 3RF I50.9 - Heart failure, unspecified Heath Clarke MD Discontinued carvedilol Discontinued Reason: Doctor's Order 3.125 mg PO BID 180 tabs 3RF I42.9 - Cardiomyopathy, unspecified Coding Level of Care Code Est Pt Level 4 (86973) Complex EM visit Add On G2211 Diagnoses Heart failure with reduced ejection fraction I50.20 CPT Codes EKG - CPT: 47912-[id number], Complete ([id number])
== END 2025-01-13 14:15 | disposition home or self-care (01) ==
LOC: HO.HCS 13:41
PROVIDERS: Visit Provider Internal Medicine Cardiovascular Disease
DX: I50.20 Unspecified systolic (congestive) heart failure (principal)
CPT/HCPCS: 93010; 99214; G2211

== ENCOUNTER → 2025-01-27 08:02 | Outpatient (REF) | payer OTHER, SELFPAY ==
--- NOTE | 2025-01-27 08:05 | CA_ITS ---
Transthoracic Echocardiogram Patient (Last, First, Middle): Yvonne Anderson, Gender: Female Date of : 1985 Age: 39 Procedure Date: 01/27/2025 Procedure Type: Transthoracic Echocardiogram Location: OP Height: 160.02 cm Weight: 102.97 kg BSA: 2.04 m2 Heart Rate: bpm BP: 130 / 78 mmHg Milking Machine Operator: HALINA Referring MD: Heath Clarke MD Grocery Stocker: Heath Clarke MD Symptoms: I50.20 - Unspecified systolic (congestive) heart failure Study Quality: Fair, contrast ECG Rhythm: Sinus Conclusions: - 1. Mildly to moderately reduced LV ejection fraction of 40-45% with impaired relaxation filling pattern 2. Mildly dilated left atrium 3. Normal cardiac valvular Dopplers 4. Normal RV systolic pressure 5. No gross pericardial effusion Findings Procedure Information Contrast agent, definity, is being given per protocol without apparent complications. Left Ventricle Normal left ventricular cavity size. There is normal left ventricular wall thickness. The left ventricular systolic function is mild to moderately decreased. There is mild global hypokinesis. Spectral Doppler is indicative of an impaired relaxation filling pattern. E/E prime ratio is between 8 and 15 consistent with indeterminate filling pressures. Right Ventricle Normal right ventricular cavity size and systolic function. Atria The left atrium is mildly dilated. There is no evidence of interatrial shunt. The right atrium is normal in size. Aortic Valve The aortic valve structure and function is likely normal. There is no aortic valve stenosis. There is no aortic valve regurgitation. Mitral Valve Normal mitral valve structure and function. There is trace mitral valve regurgitation. There is no mitral valve stenosis. Pulmonic Valve The pulmonic valve was not well visualized. Tricuspid Valve Likely normal tricuspid valve structure and function. There is trace tricuspid valve regurgitation. The right ventricular systolic pressure is normal. The right ventricular systolic pressure is 19 mmHg. Normal right atrial pressure. There is no evidence of pulmonary hypertension. Great Vessels All visible segments of the aorta are normal in size. The pulmonary artery was not well visualized. Venous The inferior vena cava is normal in size and collapses greater than 50% with inspiration. Pericardium/Pleural There is no evidence of pericardial effusion. Prior Study Comparison Changes noted compared to prior study dated: 04/27/2023. LV ejection fraction has improved Measurements 2D Linear Measurements IVSd: 1.06 0.6-0.9/0.6-1.0 cm LVIDd: 5.41 3.9-5.3/4.2-5.9 cm LVIDd Index: 2.65 2.4-3.2/2.2-3.1 cm/m2 LVIDs: 4.12 2.0-3.6 cm LVPWd: 1.07 0.7-1.1 cm LA Diam: 4.70 2.7-3.8/3.0-4.0 cm LAIDs Index: 2.30 1.5-2.3 cm/m2 LV Mass: 281.13 67-162/88-224 g LV Mass Index: 137.81 43-95/49-115 g/m2 LVOT Diam: 2.00 3.0+(-)1.3 cm 2D Systolic Function EF 4C: 48.50 >55% EF 2C: 43.00 >55% EF BiP: 44.50 >55% Mitral Valve MV Pk E: 0.76 MV PK A: 0.87 MV Decel Time: 136.00 E/A: 0.90 E'Lateral: 10.30 E'Medial: 8.27 E/E' Med: 9.20 E/E' Lat: 7.40 PHT: 40.00 MVA PHT: 5.50 Decel [place]: 5.58 Aortic Valve AoV Pk Blake: 1.63 AoV Mn Blake: 1.17 AoV VTI: 0.28 AoV Pk Grad: 11.00 Aov Mn Grad: 6.00 ANIL Cont.VTI: 2.13 LVOT LVOT Pk Blake: 0.97 LVOT Mn Blake: 0.67 LVOT VTI: 0.19 LVOT Pk Grad: 4.00 LVOT Mn Grad: 2.00 LVOT Diam: 2.00 LVOT Area: 3.14 Diastolic Function MV Pk E: 0.76 MV Pk A: 0.87 E/A: 0.90 E'Medial: 8.27 E/E' Med: 9.20 E' Laterial: 10.30 E/E' Lat: 7.40 Right Ventricle TAPSE (mm): 24.00 TVS' Blake: 14.80 Tricuspid Valve TR Pk Blake: 2.00 TR Pk Grad: 16.00 RA Press: 3.00 RVSP: 19.00 Great Vessels Aorta Sinus of Valsalva: 3.11 2.0-3.[address] [place]: 2.57 1.7-3.4 cm Ao Asc: 3.20 2.1-3.4 cm Updated in Other Vendor System with Status of Final Heath Clarke MD electronically signed on 01/28/2025 12:56:25 PM with status of Final
== END ==
LOC: HO.CARD 08:02
PROVIDERS: Visit Provider Internal Medicine Cardiovascular Disease
DX: I50.20 Unspecified systolic (congestive) heart failure (principal)
CPT/HCPCS: 93306; Q9957

== ENCOUNTER → 2025-01-27 08:05 | Outpatient (BNV) | payer OTHER, SELFPAY | PROVIDERS: Visit Provider Internal Medicine Cardiovascular Disease | DX: I50.20 Unspecified systolic (congestive) heart failure (principal) | CPT/HCPCS: 93306 ==